=== PATIENT | female | born 1995 | race Caucasian/White ===

== ENCOUNTER 2019-08-02 17:11 | Emergency (ER) | payer BC, MEDICARE, MEDICAID, SELFPAY ==
[2019-08-02 17:27] VITALS: BP 130/83; PULSE 92; RESP 18; TEMP 37.3; O2SAT 98
--- NOTE | 2019-08-02 17:45 | ED.GENADULT ---
HPI - General Adult General Chief complaint: Dental/Oral Stated complaint: tooth pain Time Seen by Provider: 08/02/19 17:45 Source: patient and RN notes reviewed Mode of arrival: ambulatory Limitations: no limitations History of Present Illness HPI narrative: 24-year-old female who presents to express care with complaints of dental pain left upper and lower molar for the past 2-3 week. Patient states that she had an appointment with her dentist but they canceled it due to pandemic and she was told to come to express care for evaluation. Patient has noted dental caries to last molar upper #15, and lower #18 on the left side with some redness of surrounding gum, no drainage noted.No swelling of jaw or any evidence of Andre angina. MD complaint: dental pain Onset (ago): week(s) (2-3) Location: mouth Radiation: non-radiation Severity: severe Severity scale (1-10): 8 Quality: aching Pain Consistency: constant Relieving factors: none Exacerbating factors: eating Treatments prior to arrival: NSAID Related Data Home Medications Medication Instructions Recorded Confirmed albuterol sulfate INHALATION 08/02/19 benztropine 08/02/19 cariprazine [Vraylar] mg 08/02/19 dextroamphetamine-amphetamine PO 08/02/19 hydroxyzine HCl 08/02/19 levothyroxine 50 mcg PO DAILY 08/02/19 08/02/19 lithium carbonate 08/02/19 lorazepam 08/02/19 trazodone 08/02/19 Allergies Allergy/AdvReac Type Severity Reaction Status Date / Time gluten AdvReac Mild Diarrhea Verified 08/02/19 17:32 Review of Systems Review of Systems: Narrative: CONSTITUTIONAL: Denies fever, chills, or sweats. EYES: Denies visual changes, redness, or discharge. ENT: Denies rhinorrhea, congestion, sore throat, or otalgia, verbalizes dental pain left upper and left lower molars, states increase discomfort with cold oral fluids. CARDIOVASCULAR: Denies chest pain, palpitations, or edema. RESPIRATORY: Denies cough or dyspnea. GASTROINTESTINAL: Denies abdominal pain, nausea, vomiting, or diarrhea. GENITOURINARY: Denies dysuria or hematuria. SKIN: Denies rash or itching. MUSCULOSKELETAL: Denies back pain, joint pain, or myalgia. NEUROLOGIC: Denies headache, numbness, or weakness. PSYCHIATRIC: positive anxiety or depression. All systems reviewed & are unremarkable except as noted in HPI and below PMFSH Past Medical History Medical History (Updated 08/02/19 @ 18:19 by Kathy Fourneir NP) ADHD Anxiety and depression Asthma Bipolar 1 disorder Bronchitis Celiac disease Fracture of left foot History of dental problems History of PCOS Hypothyroidism Insulin resistance Migraines Pneumonia Vitamin B12 deficiency Surgical History Surgical History (Updated 08/02/19 @ 18:38 by Kathy Fournier NP) History of tonsillectomy Social History Social History (Updated 08/02/19 @ 18:16 by Kahty Fournier NP) Smoking packs per day: 0.5 Smoking cigarettes per day: 10.0 Years smoked: 7 Smoking pack-years: 3.50 Smoking status: Current every day smoker Gender identity (if verbalized by the patient): Female Comments At time of signature, agree with nursing past medical, surgical, social history. There is no relevant family history pertinent to the presenting complaint Exam Narrative: Exam Narrative: GENERAL: Well-appearing, well-nourished, and in no acute distress. HEAD: Normocephalic, atraumatic. EYES: PERRLA and EOMI. ENT: Nares clear, no rhinorrhea or epistaxis. Mucous membranes moist.TM's normal with good light reflex, throat pink with no lesions or exudates, no tonsil swelling. #15, and #18 tooth has caries and dental pain, mild redness of surrounding gums, no Andre angina or jaw swelling NECK: Supple.no lymphadenopathy CHEST: Clear to auscultation. No respiratory distress. SAO2 98% on room air HEART: Regular rate and rhythm. No murmur heard. Normal peripheral pulses. ABDOMEN: Soft, nontender, nondistended, normal active bowel sounds. EXTREMITIES: Nor
== END 2019-08-02 18:00 | disposition home or self-care (01) ==
PROVIDERS: Emergency Provider Registered Nurse; PCP Family Medicine
DX: K02.9 Dental caries, unspecified (principal); F17.210 Nicotine dependence, cigarettes, uncomplicated; J45.909 Unspecified asthma, uncomplicated; E28.2 Polycystic ovarian syndrome; E03.9 Hypothyroidism, unspecified; F41.9 Anxiety disorder, unspecified; F90.9 Attention-deficit hyperactivity disorder, unspecified type; F31.9 Bipolar disorder, unspecified
CPT/HCPCS: 99213; G0463

== ENCOUNTER 2019-08-13 12:04 | Emergency (ER) | payer BC, MEDICARE, MEDICAID, SELFPAY ==
[2019-08-13 12:06] VITALS: BP 153/109; PULSE 121; RESP 16; TEMP 37; O2SAT 99
--- NOTE | 2019-08-13 12:48 | ED.GENADULT ---
HPI - General Adult General Chief complaint: Dental/Oral Stated complaint: Tooth infection Time Seen by Provider: 08/13/19 12:12 Source: patient Mode of arrival: ambulatory Limitations: no limitations History of Present Illness HPI narrative: Patient is a 24-year-old female who presents with 3 weeks duration of upper and lower posterior molar dental pain patient is currently being treated with penicillin for her upper respiratory symptoms patient denies any URI symptoms or other complaints notes moderate aching pain worse with eating is otherwise resting comfortably in the room upon arrival in no distress Related Data Home Medications Medication Instructions Recorded Confirmed albuterol sulfate INHALATION 08/02/19 benztropine 08/02/19 cariprazine [Vraylar] mg 08/02/19 dextroamphetamine-amphetamine PO 08/02/19 hydroxyzine HCl 08/02/19 levothyroxine 50 mcg PO DAILY 08/02/19 08/02/19 lithium carbonate 08/02/19 lorazepam 08/02/19 trazodone 08/02/19 Allergies Allergy/AdvReac Type Severity Reaction Status Date / Time gluten AdvReac Mild Diarrhea Verified 08/13/19 12:20 Review of Systems Review of Systems: All systems reviewed & are unremarkable except as noted in HPI and below PMFSH Past Medical History Medical History ADHD Anxiety and depression Asthma Bipolar 1 disorder Bronchitis Celiac disease Fracture of left foot History of dental problems History of PCOS Hypothyroidism Insulin resistance Migraines Pneumonia Vitamin B12 deficiency Surgical History Surgical History History of tonsillectomy Social History Social History Smoking packs per day: 0.5 Smoking cigarettes per day: 10.0 Years smoked: 7 Smoking pack-years: 3.50 Smoking status: Current every day smoker Gender identity (if verbalized by the patient): Female Exam Narrative: Exam Narrative: GENERAL: Well-appearing, well-nourished, and in no acute distress. HEAD: Normocephalic, atraumatic. EYES: PERRLA and EOMI. ENT: Nares clear, no rhinorrhea or epistaxis. Mucous membranes moist. Oropharynx without tonsillar hypertrophy exudate or other lesions. Dental caries in the teeth noted no erythema. Uvula midline no trismus or drooling NECK: Supple. No adenopathy or masses. CHEST: Clear to auscultation. No respiratory distress. No wheezes rales or rhonchi HEART: Regular rate and rhythm. No murmur heard. EXTREMITIES: Normal range of motion. No edema. SKIN: Warm, dry, no rash. NEURO: No focal deficits. Alert and oriented x3. Cranial nerves II through XII grossly intact PSYCH: Normal mood and affect. Course Course Emergency Course: Patient in the room in no distress aware of case findings treatment plan and diagnosis Vital Signs Vital signs: Vital Signs Temperature 98.6 F 08/13/19 12:06 Pulse Rate 121 H 08/13/19 12:06 Respiratory Rate 16 08/13/19 12:06 Blood Pressure 153/109 H 08/13/19 12:06 Pulse Oximetry 99 08/13/19 12:06 Temperature 98.6 F 08/13/19 12:06 Pulse Rate 121 H 08/13/19 12:06 Respiratory Rate 16 08/13/19 12:06 Blood Pressure 153/109 H 08/13/19 12:06 Pulse Oximetry 99 08/13/19 12:06 Medical Decision Making MDM Narrative Medical decision making narrative: Paitents pain and complaint coupled with physical findings are consistant with dentalgia. There are no focal signs of space occupying lesions that are compromising to the ariway. The floor of the mouth is soft with no signs of Ludwigs Angina. Patient is without trismus or drooling and able to swallow secreations. Patient is felt appropriate for discharge home with dental follow up. Vital Signs Vital Signs: Vital Signs Temperature 98.6 F 08/13/19 12:06 Pulse Rate 121 H 08/13/19 12:06 Respiratory Rate 16 08/13/19 12:06 Blood Pressure 153/
== END 2019-08-13 12:58 | disposition home or self-care (01) ==
PROVIDERS: Emergency Provider Emergency Medicine; PCP Family Medicine
DX: K08.89 Other specified disorders of teeth and supporting structures (principal); F17.210 Nicotine dependence, cigarettes, uncomplicated; F90.9 Attention-deficit hyperactivity disorder, unspecified type; F41.9 Anxiety disorder, unspecified; E28.2 Polycystic ovarian syndrome; E03.9 Hypothyroidism, unspecified; F31.9 Bipolar disorder, unspecified
CPT/HCPCS: 99283

== ENCOUNTER 2020-11-12 23:29 | Emergency (ER) | payer BC, MEDICARE, MEDICAID, SELFPAY ==
--- NOTE | ~2020-11-12 | XR_ITS ---
EXAMINATION: XR chest 2V DATE: 11/13/2020 00:24 INDICATION: Dizziness. Left-sided chest pain and wheezing. TECHNIQUE: PA and lateral views of the chest were obtained. COMPARISON: None FINDINGS: The lungs are clear with no focal airspace opacities, pulmonary edema, pleural effusion or pneumothor ax. The cardiomediastinal silhouette is normal. Visualized bones and soft tissues are unremarkable. IMPRESSION: 1. No acute cardiopulmonary disease. Reviewed, dictated and finalized at location A.
--- NOTE | ~2020-11-12 | CT_ITS ---
EXAMINATION: CT abdomen pelvis w con DATE: 11/13/2020 02:13 INDICATION: Left lower abdominal pain TECHNIQUE: Computed tomography (CT) of the abdomen and pelvis was performed with 100 mL Omnipaque-350 intravenous contrast. Automated exposure control and iterative reconstruction technique were employe d. The dose-length product was 1421.16 mGy-cm. COMPARISON: None FINDINGS: Mild discoid atelectasis at the lingula. Heart size is normal. No pericardial or pleural effusion. Sm all sliding-type hiatal hernia. Focal hepatic steatosis at the ligamentum teres. Gallbladder, spleen, pancreas, bilateral adrenal glands and kidneys are normal. 7.1 cm left ovarian cyst positioned anter ior to the uterus. Right adnexa is unremarkable. Bladder is normal. No free intraperitoneal gas or fl uid. No pathologically enlarged abdominal or pelvic lymphadenopathy. Bones are unremarkable. IMPRESSION: 1. 7.1 cm left ovarian cyst. Reviewed, dictated and finalized at location A.
[2020-11-12 23:34] VITALS: BP 143/93; PULSE 106; TEMP 36.6; O2SAT 100
[2020-11-12 23:56] VITALS: BP 143/93; PULSE 106; RESP 14; TEMP 36.6; O2SAT 99
--- NOTE | 2020-11-13 00:08 | ECG_ITS ---
Measurements Intervals Mason Rate: 87 P: 27 MN: 213 QRS: 8 QRSD: 100 T: 34 QT: 347 QTc: 418 Interpretive Statements SINUS RHYTHM WITH FIRST DEGREE AV BLOCK BASELINE ARTIFACT- III, AVF ABNORMAL ECG Electronically Signed On 11-13-2020 6:16:35 CDT by Armando Tobias D.O.
--- NOTE | 2020-11-13 00:13 | ED.DIZZY ---
HPI - Dizziness General Chief Complaint: Dizziness Stated Complaint: lightheaded,dizzy-facial pain Time Seen by Provider: 11/12/20 23:53 Source: patient and RN notes reviewed Mode of arrival: ambulatory Limitations: no limitations History of Present Illness HPI Narrative: This is a 25 year old female with history of Bipolar, hypothyroid and anxiety who presents for evaluation of dizziness. She states she has been lightheaded all day today. It is worse with standing but she also reports she has it when sitting as well. She has had a decreased appetite all day, and she developed nausea and vomiting tonight when she attempted to eat. She also states she developed left jaw pain tonight. She denies fever or chills. She has been dealing with URI symptoms with sinus drainage for 1 week, and she was diagnosed with pleurisy last week. She states she had a cough so she went to a clinic. She was tested for covid and strep, and her results were negative. last menstrual period was in September. She also reports left lower abdominal pain for 2 weeks. Related Data Home Medications Medication Instructions Recorded Confirmed albuterol sulfate INHALATION 08/02/19 benztropine 08/02/19 cariprazine [Vraylar] mg 08/02/19 dextroamphetamine-amphetamine PO 08/02/19 hydroxyzine HCl 08/02/19 levothyroxine 50 mcg PO DAILY 08/02/19 08/02/19 lithium carbonate 08/02/19 lorazepam 08/02/19 trazodone 08/02/19 Allergies Allergy/AdvReac Type Severity Reaction Status Date / Time gluten AdvReac Mild Diarrhea Verified 11/12/20 23:30 Review of Systems Review of Systems: All systems reviewed & are unremarkable except as noted in HPI and below ENT: Reports nasal congestion, Reports nasal discharge, Reports post nasal drip and Denies sore throat Cardiovascular: Cardiovascular: Denies chest pain Respiratory: Respiratory: Reports cough Gastrointestinal: Gastrointestinal: Reports abdominal pain (2 weeks), Denies nausea and Denies vomiting Neurologic: Denies numbness PMFSH Past Medical History Medical History (Updated 11/13/20 @ 02:52 by Janett Maria MD) ADHD Anxiety and depression Asthma Bipolar 1 disorder Bronchitis Celiac disease Fracture of left foot History of dental problems History of PCOS Hypothyroidism Insulin resistance Migraines Pneumonia Vitamin B12 deficiency Surgical History Surgical History History of tonsillectomy Social History Social History Smoking packs per day: 0.5 Smoking cigarettes per day: 10.0 Years smoked: 7 Smoking pack-years: 3.50 Smoking status: Current every day smoker Gender identity (if verbalized by the patient): Female Exam Const: General: no acute distress and alert Orientation/consciousness: patient oriented x3 HENMT: Ears: TM's normal bilaterally Eyes: EOM: EOMs intact bilaterally Chest: Chest palpation & inspection: normal inspection of the chest Resp: Effort & Inspection: normal respiratory effort and no retractions Auscultation: clear to auscultation bilaterally Cardio: Rate: regular rate Rhythm: regular rhythm Heart sounds: no murmurs GI: GI Palp: Yes Soft to palpation, No Tenderness to palpation present (GI) and No Guarding due to palpation present (GI) Auscultation: normal bowel sounds Skin: General skin exam: normal color Rashes: no rashes Neuro: General: patient oriented x3, moves all extremities and CN's II-XI intact bilaterally Psych: Mental Status: mental status grossly normal Affect: normal affect Course Reevaluation(s) Reevaluation #1: PAtient states she feels much better. She reports minimal abdominal pain. I reviewed CT with patient about ovarian cyst. She reported this pain has been present for 2 weeks. She has history of ovarian cyst, and she understands she will need to followup with your cigarette stamper britney
[2020-11-13 00:41] LABS: Basophils Absolute Auto 0.1 K/mm3 (0.0-0.1); Basophils Percent Auto 0.4 % (0.2-1.2); Eosinophils Absolute Auto 0.2 K/mm3 (0-0.3); Eosinophils Percent Auto 1.4 % (0-4.4); Hematocrit 45.2 % (37.0-47.0); Hemoglobin 14.6 g/dL (12.0-15.0); Immature Granulocyte Absolute 0.05 K/mm3 (0.00-0.031); Immature Granulocyte Percent A 0.4 % (0-0.5); Lymphocytes Absolute Auto 3.29 K/mm3 (0.9-3.2); Lymphocytes Percent Auto 23.8 % (18.3-44.2); Mean Corpuscular HGB Conc 32.3 g/dl (32-36); Mean Corpuscular Hemoglobin 30.6 pg (26-34); Mean Corpuscular Volume 94.8 fl (80-100); Mean Platelet Volume 8.9 fl (7.4-10.4); Neutrophils Absolute Auto 9.3 K/mm3 (1.3-6.7); Platelet Count Result 377 k/mm3 (150-375); Red Blood Count 4.77 M/mm3 (4.2-5.4); Red Cell Distribution Width 13.2 % (11.5-14.5); White Blood Count 13.8 K/mm3 (4.5-10.0)
[2020-11-13] MEDS: KETOROLAC 30 MG/ML VIAL (*BKC) IV PUSH (00:43)
[2020-11-13] MEDS: SODIUM CHLORIDE 0.9% IV 1,000 ML 999 ML IV CONT (00:43)
[2020-11-13] MEDS: ONDANSETRON INJ 4 MG/2 ML VIAL IV PUSH (00:43)
[2020-11-13 00:44] VITALS: BP 128/78; PULSE 88; RESP 17; O2SAT 96
[2020-11-13 00:45] VITALS: BP 120/76; PULSE 84
[2020-11-13 00:46] VITALS: BP 129/76; PULSE 92
[2020-11-13 00:46] LABS: Add Urine Microscopic? YES; Appearance Urine Cloudy (Clear); Bacteria Urine Trace /hpf; Bilirubin Urine Negative (Negative); Blood Urine Negative (Negative); Color Urine Yellow (Yellow); Glucose Urine UA Negative (Negative); Ketones Urine Negative (Negative); Leukocyte Esterase Ur Negative LEU/UL (Negative); Mucus Urine Rare /lpf; Nitrate Urine Negative (Negative); Protein Urine Negative (Negative); RBC Urine 0-2 /hpf (0-2); Specific Grav Ur 1.016 (1.001-1.035); Squamous Epithelial Cell Urine Many /hpf (Few); Urobilinogen Urine Negative mg/dL (<2.0); WBC Urine 0-3 /hpf
[2020-11-13 00:47] VITALS: BP 125/77; PULSE 88
[2020-11-13 00:53] LABS: D Dimer 0.32 ug/mL (<0.48)
[2020-11-13 01:05] LABS: Amphetamine Screen Urine Positive (Negative); Barbiturate Screen Urine Negative (Negative); Benzodiazepines Screen Urine Negative (Negative); Cannabinoid Screen Urine Positive (Negative); Cocaine Screen Urine Negative (Negative); Methadone Screen Urine Negative (Negative); Opiate Screen Urine Negative (Negative); Phencyclidine Screen Urine Negative (Negative)
[2020-11-13 01:09] LABS: Alanine Aminotransferase 20 U/L (4-35); Albumin Level 4.1 g/dL (3.5-5.1); Alkaline Phosphatase 86 U/L (38-126); Anion Gap 8 mmol/L (8-16); Aspartate Amino Transferase 17 U/L (14-36); Bilirubin,Total 0.2 mg/dL (0.2-1.3); Blood Urea Nitrogen 8 mg/dL (7-17); Calcium 9.8 mg/dL (8.4-10.2); Carbon Dioxide 23 mmol/L (22-30); Chloride 109 mmol/L (98-107); Estimated CRCL calculation 83 ml/min; Estimated Glomerular Filt Rate > 60; Glucose 88 mg/dL (65-105); Magnesium 2.2 mg/dL (1.6-2.3); Sodium 140 mmol/L (137-145)
[2020-11-13 01:20] LABS: Troponin I < 0.012 ng/mL (0.000-0.034)
[2020-11-13 01:30] VITALS: BP 131/75; PULSE 86; RESP 22; O2SAT 95
[2020-11-13 01:37] LABS: Lithium 0.4 mmol/L (0.6-1.2)
[2020-11-13 02:30] VITALS: BP 125/87; PULSE 71; RESP 22; O2SAT 97
== END 2020-11-13 03:00 | disposition home or self-care (01) ==
PROVIDERS: Emergency Provider General Practice; PCP Family Medicine
DX: R42 Dizziness and giddiness (principal); E28.2 Polycystic ovarian syndrome; E03.9 Hypothyroidism, unspecified; F31.9 Bipolar disorder, unspecified; F41.9 Anxiety disorder, unspecified; F90.9 Attention-deficit hyperactivity disorder, unspecified type; J45.909 Unspecified asthma, uncomplicated; K90.0 Celiac disease; E88.81 Metabolic syndrome and other insulin resistance; E53.8 Deficiency of other specified B group vitamins; Z87.01 Personal history of pneumonia (recurrent); F17.210 Nicotine dependence, cigarettes, uncomplicated
CPT/HCPCS: 36415; 71046; 74177; 80053; 80178; 80307; 81001; 81025; 83735; 84484; 85025; 85380; 93005; 96361; 96374; 96375; 99284; J1885; J2405; J7030; Q9967

== ENCOUNTER 2020-12-04 21:49 | Emergency (ER) | payer BC, MEDICARE, MEDICAID, SELFPAY ==
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
[2020-12-04 23:22] VITALS: BP 135/95; PULSE 99; RESP 18; TEMP 36.6; O2SAT 98
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
== END 2020-12-05 01:24 | disposition home or self-care (01) ==
PROVIDERS: Emergency Provider General Practice; PCP Family Medicine
DX: S60.211A Contusion of right wrist, initial encounter (principal); F90.9 Attention-deficit hyperactivity disorder, unspecified type; F41.9 Anxiety disorder, unspecified; J45.909 Unspecified asthma, uncomplicated; F31.9 Bipolar disorder, unspecified; K90.0 Celiac disease; E03.9 Hypothyroidism, unspecified; E28.2 Polycystic ovarian syndrome; E53.8 Deficiency of other specified B group vitamins; Z87.01 Personal history of pneumonia (recurrent); E88.81 Metabolic syndrome and other insulin resistance; F17.210 Nicotine dependence, cigarettes, uncomplicated; W50.3XXA Accidental bite by another person, initial encounter
CPT/HCPCS: 73110; 99283

== ENCOUNTER 2020-12-20 18:19 | Emergency (ER) | payer BC, MEDICARE, MEDICAID, SELFPAY ==
--- NOTE | ~2020-12-20 | XR_ITS ---
EXAMINATION: XR foot LT min 3V DATE: 12/20/2020 19:36 INDICATION: Left foot injury. TECHNIQUE: 4 views of left foot were obtained. COMPARISON: None. FINDINGS: There is mild hallux valgus. No fracture. Joint spaces are normal. IMPRESSION: 1. Mild hallux valgus. Reviewed, dictated and finalized at location A. IMPRESSION: 1. Mild hallux valgus.
[2020-12-20 18:30] VITALS: BP 132/72; PULSE 97; RESP 16; TEMP 36.6; O2SAT 99
--- NOTE | 2020-12-20 18:41 | ED.GENADULT ---
HPI - General Adult General Chief complaint: Extremity Injury, Lower Stated complaint: left foot Time Seen by Provider: 12/20/20 18:41 Source: patient and RN notes reviewed Mode of arrival: ambulatory Limitations: no limitations History of Present Illness HPI narrative: 25-year-old female presents with complaints of left foot pain for the past 7 days. ?Yeni reports losing balance and stepping incorrectly causing injury to LT foot, pain is constant. ?Ice, elevation, rest, and Tylenol last today at noon, without relief. ?History of fracture to LT foot in same spot per patient. ?Hurts to bear weight. ?No radiation of pain. ?No numbness, tingling, or loss of mobility. ?Exacerbating factor applying weight. ?Denies inability to bear weight. ?Denies discoloration. Denies suspect foreign body. ?Denies fever or chills. ?LMP 2 weeks ago. ?Remains active. ?The patient reports she has not been diagnosed with COVID-19. ?The patient reports she received 1 Moderna COVID-19 vaccine. ?The patient reports she is not waiting for the results of a COVID-19 lab test. ?The patient reports she does not have weakness, fatigue, or myalgia. ?The patient reports she does not have a new or worsening cough or shortness of breath. ?The patient reports she does not have any rhinorrhea, congestion, loss of taste or smell, sore throat, nausea, vomiting, abdominal pain, and diarrhea. ?Denies recent traveling. Denies concerns for COVID-19 or exposures. ?At this time, the patient is not suspected of having COVID-19. Some parts of this dictation were generated by voice recognition software and may contain typographical and/or grammatical inaccuracies. Related Data Home Medications Medication Instructions Recorded Confirmed cariprazine [Vraylar] 4.5 mg PO DAILY 08/02/19 12/20/20 hydroxyzine HCl 08/02/19 levothyroxine 50 mcg PO DAILY 08/02/19 12/20/20 trazodone 100 mg PO HS 08/02/19 dextroamphetamine-amphetamine 20 mg PO DAILY 12/20/20 12/20/20 gabapentin 300 mg PO BID 12/20/20 12/20/20 lithium carbonate 450 mg PO BID 12/20/20 12/20/20 norgestimate-ethinyl estradiol 1 tablet PO DAILY 12/20/20 12/20/20 [Maribel] prazosin 1 mg PO HS 12/20/20 12/20/20 topiramate 25 mg PO DAILY 12/20/20 12/20/20 Allergies Allergy/AdvReac Type Severity Reaction Status Date / Time gluten AdvReac Mild Diarrhea Verified 12/20/20 18:43 Review of Systems Review of Systems: CONSTITUTIONAL: Denies fever, chills, sweats. EYES: Denies visual changes, redness, discharge. ENT: Denies rhinorrhea, congestion, sore throat, otalgia. CARDIOVASCULAR: Denies chest pain, palpitations, edema. RESPIRATORY: Denies dyspnea, wheezing, cough. GASTROINTESTINAL: Denies abdominal pain, nausea, vomiting, diarrhea. SKIN: Denies rash or itching. MUSCULOSKELETAL: Denies acute back pain or myalgia. Complaints of pain to the left foot. NEUROLOGIC: Denies numbness or focal weakness. PSYCHIATRIC: Denies anxiety or depression. All other systems reviewed are negative, except as documented in HPI and below. [facility] Past Medical History Medical History (Updated 12/20/20 @ 19:08 by KANIKA Maxwell) ADHD Anxiety and depression Asthma Bipolar 1 disorder Bronchitis Celiac disease Fracture of left foot History of dental problems History of PCOS Hypothyroidism Insulin resistance Migraines Pneumonia Vitamin B12 deficiency Surgical History Surgical History (Updated 12/20/20 @ 19:08 by KANIKA Maxwell) History of dental surgery History of tonsillectomy Family History Family History (Updated 12/20/20 @ 19:09 by KANIKA Maxwell) Father Unknown family medical history Mother Unknown family medical history Grandparent Asthma Cervical cancer Social History Social History (Updated 12/20/20 @ 19:10 by KANIKA Maxwell) Smoking packs per day: 1 Smoking cigarettes per day: 20.0 Years smoked: 8 Smoking pack-years: 8.00 Smoking status: Current every d
--- NOTE | 2020-12-20 19:50 | PC.NURSE ---
x-ray normal, patient notified and discharged with prior instructions.
== END 2020-12-20 19:50 | disposition home or self-care (01) ==
PROVIDERS: Emergency Provider Nurse Practitioner Family; PCP Family Medicine
DX: M79.672 Pain in left foot (principal); F17.210 Nicotine dependence, cigarettes, uncomplicated; J45.909 Unspecified asthma, uncomplicated; E28.2 Polycystic ovarian syndrome; E03.9 Hypothyroidism, unspecified; E55.9 Vitamin D deficiency, unspecified; F90.9 Attention-deficit hyperactivity disorder, unspecified type; F31.9 Bipolar disorder, unspecified; F41.9 Anxiety disorder, unspecified
CPT/HCPCS: 73630; 99213; G0463

== ENCOUNTER 2021-01-19 18:47 | Emergency (ER) | payer BC, MEDICARE, MEDICAID, SELFPAY ==
[2021-01-19 18:53] VITALS: BP 105/76; PULSE 90; RESP 20; TEMP 36.6; O2SAT 99
--- NOTE | 2021-01-19 19:57 | ED.SKABFB ---
HPI - Skin/Abscess/Foreign Bdy General Chief complaint: Skin/Abscess/Foreign Body Stated complaint: tatoo infection Time Seen by Provider: 01/19/21 19:45 Source: patient, RN notes reviewed and old records reviewed Mode of arrival: ambulatory Limitations: no limitations History of Present Illness HPI narrative: 25 year old female who presents to [facility] care with complaints of infection to her left inner forearm from recent tattoo.She has surrounding redness to skin with some pustular lesions noted along tattoo edges. Patient states that she has applied A&D to tattoo and has been taking Ibuprofen for her discomfort. Patient denies any know fevers, chills or sweats, has some warmth noted to left forearm area of redness. Patient states that she has no other symptoms of illness, rates pain to right forearm as 4/10 and states stinging sensation. MD complaint: rash Related Data Home Medications Medication Instructions Recorded Confirmed levothyroxine 50 mcg PO DAILY 08/02/19 01/19/21 trazodone 100 mg PO HS 08/02/19 01/19/21 dextroamphetamine-amphetamine 20 mg PO DAILY 12/20/20 01/19/21 gabapentin 300 mg PO BID 12/20/20 01/19/21 lithium carbonate 450 mg PO TID 12/20/20 01/19/21 norgestimate-ethinyl estradiol 1 tablet PO DAILY 12/20/20 01/19/21 [Maribel] prazosin 1 mg PO HS 12/20/20 01/19/21 topiramate 25 mg PO BID 12/20/20 01/19/21 albuterol sulfate 2.5 mg CONTINUOUS NEBULIZATION 01/19/21 01/19/21 Q4-6H PRN lorazepam 0.5 mg PO DAILY 01/19/21 01/19/21 Allergies Allergy/AdvReac Type Severity Reaction Status Date / Time gluten AdvReac Mild Diarrhea Verified 01/19/21 19:09 Review of Systems Review of Systems: CONSTITUTIONAL: Denies fever, chills, or sweats. EYES: Denies visual changes, redness, or discharge. ENT: Denies rhinorrhea, congestion, sore throat, or otalgia. CARDIOVASCULAR: Denies chest pain, palpitations, or edema. RESPIRATORY: Denies cough or dyspnea. GASTROINTESTINAL: Denies abdominal pain, nausea, vomiting, or diarrhea. GENITOURINARY: Denies dysuria or hematuria. SKIN: Positive for redness with warm and some pustular lesions on right inner forearm where recent tattoo MUSCULOSKELETAL: Denies back pain, joint pain, or myalgia. NEUROLOGIC: Denies headache, numbness, or weakness. PSYCHIATRIC: Positive history of anxiety or depression, and bipolar disease All systems reviewed & are unremarkable except as noted in HPI and below PMFSH Past Medical History Medical History ADHD Anxiety and depression Asthma Bipolar 1 disorder Bronchitis Celiac disease Fracture of left foot History of dental problems History of PCOS Hypothyroidism Insulin resistance Migraines Pneumonia Vitamin B12 deficiency Surgical History Surgical History History of dental surgery History of tonsillectomy Family History Family History (Updated 01/25/21 @ 11:23 by Kathy Fournier NP) Father Unknown family medical history Mother Unknown family medical history Grandparent Asthma Cervical cancer FH: mental illness Diabetes mellitus Social History Social History Smoking packs per day: 1 Smoking cigarettes per day: 20.0 Years smoked: 8 Smoking pack-years: 8.00 Smoking status: Current every day smoker Tobacco type: cigarettes Second hand tobacco smoke exposure: No Alcohol intake: current Substance use: current Substance use type: marijuana Additional occupation/education comments: disable Gender identity (if verbalized by the patient): Female Sexual Orientation (if Verbalized by the Patient): Straight or Heterosexual Comments At time of signature, agree with nursing past medical, surgical, social and family history. There is no relevant family history pertinent to the presenting complaint Exam Narrative: GENERAL: Well-
== END 2021-01-19 20:10 | disposition home or self-care (01) ==
PROVIDERS: Emergency Provider Registered Nurse; PCP Family Medicine
DX: L02.413 Cutaneous abscess of right upper limb (principal); F17.210 Nicotine dependence, cigarettes, uncomplicated; E28.2 Polycystic ovarian syndrome; E03.9 Hypothyroidism, unspecified; E88.81 Metabolic syndrome and other insulin resistance; F90.9 Attention-deficit hyperactivity disorder, unspecified type; F41.9 Anxiety disorder, unspecified; F31.9 Bipolar disorder, unspecified
CPT/HCPCS: 99213; G0463

== ENCOUNTER 2021-10-24 14:24 | Emergency (ER) | payer MEDICARE, MEDICAID, SELFPAY ==
[2021-10-24] VITALS (15 sets, daily range): BP systolic 111–139; BP diastolic 76–91; PULSE 74–110; RESP 13–27; TEMP 36.3; O2SAT 93–100
--- NOTE | ~2021-10-24 | CT_ITS ---
EXAMINATION: CT abdomen pelvis wo con DATE: 10/24/2021 16:47 INDICATION: LLQ abd pain TECHNIQUE: Computed tomography (CT) of the abdomen and pelvis was performed without intravenous contr ast. Automated exposure control and iterative reconstruction technique were employed. The dose-length product was 1030.32 mGy-cm. COMPARISON: 11/13/2020. FINDINGS: Lower thorax: Unremarkable Liver: Normal. Biliary/Gallbladder: Gallbladder is normal. No bile duct dilation. Pancreas: No mass or duct dilation. Spleen: Normal. Adrenals:No mass. Kidneys: No mass, stone, or hydronephrosis. GI tract: No small or large bowel dilation. Normal appendix. Mesentery/Peritoneum: No ascites, mass, or free air. Retroperitoneum: No mass. Pelvis: Pelvic organs are within normal limits. Soft Tissues: Soft tissues and body wall unremarkable. Bones: No acute osseous finding. IMPRESSION: No acute abdominopelvic process detected. Reviewed, dictated and finalized at location K.
[2021-10-24 14:38] LABS: Basophils Absolute Auto 0.1 K/mm3 (0.0-0.1); Basophils Percent Auto 0.5 % (0.2-1.2); Eosinophils Absolute Auto 0.1 K/mm3 (0-0.3); Eosinophils Percent Auto 0.7 % (0-4.4); Hematocrit 48.1 % (37.0-47.0); Hemoglobin 15.6 g/dL (12.0-15.0); Immature Granulocyte Absolute 0.04 K/mm3 (0.00-0.031); Immature Granulocyte Percent A 0.3 % (0-0.5); Lymphocytes Absolute Auto 3.08 K/mm3 (0.9-3.2); Lymphocytes Percent Auto 23.3 % (18.3-44.2); Mean Corpuscular HGB Conc 32.4 g/dl (32-36); Mean Corpuscular Hemoglobin 31.3 pg (26-34); Mean Corpuscular Volume 96.4 fl (80-100); Mean Platelet Volume 8.4 fl (7.4-10.4); Monocytes Absolute Auto 0.6 K/mm3 (0.1-0.6); Monocytes Percent Auto 4.2 % (2.6-8.5); Neutrophils Absolute Auto 9.4 K/mm3 (1.3-6.7); Platelet Count Result 557 k/mm3 (150-375); Red Blood Count 4.99 M/mm3 (4.2-5.4); White Blood Count 13.2 K/mm3 (4.5-10.0)
[2021-10-24 14:48] LABS: Alanine Aminotransferase 17 U/L (6-35); Albumin Level 4.5 g/dL (3.5-5.1); Alkaline Phosphatase 96 U/L (38-126); Anion Gap 6 mmol/L (8-16); Aspartate Amino Transferase 21 U/L (14-36); Bilirubin,Total 0.3 mg/dL (0.2-1.3); Blood Urea Nitrogen 9 mg/dL (7-17); Calcium 9.6 mg/dL (8.4-10.2); Carbon Dioxide 26 mmol/L (22-30); Chloride 107 mmol/L (98-107); Estimated CRCL calculation 93 ml/min; Estimated Glomerular Filt Rate > 60; Glucose 110 mg/dL (65-110); Lipase 27 U/L (23-300); Potassium 3.8 mmol/L (3.4-5.0); Sodium 139 mmol/L (137-145)
[2021-10-24 15:06] LABS: Appearance Urine Cloudy (Clear); Bilirubin Urine 1+ (Negative); Blood Urine Negative (Negative); Color Urine Yellow (Yellow); Glucose Urine UA Negative (Negative); Ketones Urine Negative (Negative); Leukocyte Esterase Ur Negative LEU/UL (Negative); Nitrate Urine Negative (Negative); Protein Urine 1+ mg/dL (Negative); Specific Grav Ur >= 1.030 (1.001-1.035); Urobilinogen Urine 0.2 mg/dL (<2.0); pH Urine 5.5 (5.0-9.0)
[2021-10-24 15:10] LABS: Bacteria Urine 4+ /hpf; Mucus Urine Heavy /lpf; Squamous Epithelial Cell Urine Many /hpf (Few)
[2021-10-24 15:12] LABS: Add Urine Microscopic? YES
--- NOTE | 2021-10-24 15:33 | ED.GENADULT ---
HPI - General Adult General Chief complaint: Nausea/Vomiting/Diarrhea Stated complaint: LAP N/V X2D Time Seen by Provider: 10/24/21 15:25 Source: RN notes reviewed History of Present Illness HPI narrative: Patient presents emergency room from home for abdominal pain. Patient states abdominal pain began yesterday pain is located left lower quadrant does not radiate. Pain is described as sharp and stabbing. Associated with nausea and vomiting. States she took Tylenol last night with minimal relief. Denies fevers or chills chest pain, shortness of breath diarrhea or any other symptoms. States she does have a history of ovarian cyst Related Data Home Medications Medication Instructions Recorded Confirmed levothyroxine 50 mcg capsule 50 mcg PO DAILY 08/02/19 01/19/21 trazodone 50 mg tablet 100 mg PO HS 08/02/19 01/19/21 dextroamphetamine-amphetamine ER 20 mg PO DAILY 12/20/20 01/19/21 20 mg 24hr capsule,extend release gabapentin 300 mg capsule 300 mg PO BID 12/20/20 01/19/21 lithium carbonate 450 mg 450 mg PO TID 12/20/20 01/19/21 tablet,extended release norgestimate 0.25 mg-ethinyl 1 tablet PO DAILY 12/20/20 01/19/21 estradiol 35 mcg tablet (Maribel) prazosin 1 mg capsule 1 mg PO HS 12/20/20 01/19/21 topiramate 25 mg tablet 25 mg PO BID 12/20/20 01/19/21 albuterol sulfate 2.5 mg/3 mL 2.5 mg continuous nebulization 01/19/21 01/19/21 (0.083 %) solution for nebulization Q4-6H PRN Shortness Of Breath Or Wheezing lorazepam 0.5 mg tablet 0.5 mg PO DAILY 01/19/21 01/19/21 Allergies Allergy/AdvReac Type Severity Reaction Status Date / Time gluten AdvReac Mild Diarrhea Verified 10/24/21 14:32 Review of Systems Review of Systems: Gen.: Denies fevers or chills ENT: Denies congestion Respiratory: Denies shortness of breath or cough CV: Denies chest pain or palpitations GI: See HPI denies burning, urgency, frequency or hematuria Musculoskeletal: Denies back pain or muscle pain Neuro: Denies numbness, tingling, weakness or focal weakness Skin: Denies rash Except as documented, all other systems reviewed and negative [facility] Past Medical History Medical History ADHD Anxiety and depression Asthma Bipolar 1 disorder Bronchitis Celiac disease Fracture of left foot History of dental problems History of PCOS Hypothyroidism Insulin resistance Migraines Pneumonia Vitamin B12 deficiency Surgical History Surgical History History of dental surgery History of tonsillectomy Family History Family History (Updated 01/25/21 @ 11:23 by Kathy Fournier NP) Father Unknown family medical history Mother Unknown family medical history Grandparent Asthma Cervical cancer FH: mental illness Diabetes mellitus Social History Social History Smoking packs per day: 1 Smoking cigarettes per day: 20.0 Years smoked: 8 Smoking pack-years: 8.00 Smoking status: Current every day smoker Tobacco type: cigarettes Second hand tobacco smoke exposure: No Alcohol intake: current Substance use: current Substance use type: marijuana Additional occupation/education comments: disable Gender identity (if verbalized by the patient): Female Sexual Orientation (if Verbalized by the Patient): Straight or Heterosexual Exam Narrative: APPEARANCE: No acute distress, nontoxic, resting in bed HEENT: Normocephalic, atraumatic, OMM RESPIRATORY: No respiratory distress, clear to auscultation bilaterally with no rhonchi wheezing or rales CARDIOVASCULAR: RRR s murmur ABDOMINAL: Soft nondistended tender palpation left lower quadrant no tenderness left upper quadrant, right upper quadrant right lower quadrant no rebound or guarding MUSCULOSKELETAl: Moves all extremities. No clubbing, cyanosis or edema. NEURO: Awake and alert. Following comman
[2021-10-24] MEDS: SODIUM CHLORIDE 0.9% IV 1,000 ML 999 ML IV CONT (15:45)
[2021-10-24] MEDS: KETOROLAC 30 MG/ML VIAL (*BKC) IV PUSH (15:46)
[2021-10-24] MEDS: ONDANSETRON INJ 4 MG/2 ML VIAL IV PUSH (15:46)
== END 2021-10-24 17:49 | disposition home or self-care (01) ==
PROVIDERS: Emergency Provider Emergency Medicine; PCP Family Medicine
DX: R10.32 Left lower quadrant pain (principal); R11.2 Nausea with vomiting, unspecified; K90.0 Celiac disease; E03.9 Hypothyroidism, unspecified; E88.81 Metabolic syndrome and other insulin resistance; E28.2 Polycystic ovarian syndrome; E53.8 Deficiency of other specified B group vitamins; F90.9 Attention-deficit hyperactivity disorder, unspecified type; F41.9 Anxiety disorder, unspecified; F31.9 Bipolar disorder, unspecified; F17.210 Nicotine dependence, cigarettes, uncomplicated
CPT/HCPCS: 36415; 74176; 80053; 81001; 81025; 83690; 85025; 87086; 87088; 96361; 96374; 96375; 99284; J1885; J2405; J7030

== ENCOUNTER 2022-04-30 16:06 | Emergency (ER) | payer BC, MEDICARE, MEDICAID, SELFPAY ==
--- NOTE | ~2022-04-30 | XR_ITS ---
EXAMINATION: XR hand RT min 3V, XR wrist RT min 3V DATE: 04/30/2022 16:59 INDICATION: Trauma to the medial side of the right hand and wrist after hitting a wall. TECHNIQUE: 1. Posteroanterior, ulnar deviation, oblique, and lateral views of the right wrist were obtained. 2. Dorsal palmar, oblique and lateral views of the right hand were obtained. COMPARISON: None. FINDINGS: Alignment of the right hand and wrist is normal. No fracture identified. Joint spaces are normal. No focal soft tissue swelling. IMPRESSION: 1. Negative right hand and wrist radiographs. Reviewed, dictated and finalized at location A. [employer]TAIN IMPRESSION: 1. Negative right hand and wrist radiographs.
[2022-04-30 16:12] VITALS: BP 151/98; PULSE 115; RESP 20; TEMP 36.7; O2SAT 94
--- NOTE | 2022-04-30 16:43 | ED.GENADULT ---
HPI - General Adult General Chief complaint: Extremity Injury, Upper Stated complaint: right hand injury Source: patient Mode of arrival: ambulatory Limitations: no limitations History of Present Illness HPI narrative: Patient presents for evaluation of pain in the right hand and rest for the last few days. She indicates she and her friend got into a disagreement. She punched a door with the lateral aspect of her right hand. She then punched a wall with the same portion of her hand. Since that time she reports 8/10 pain in the affected area. Pain radiates up her forearm and down into her fingers. She reports numbness and tingling in the digits of her right hand. She reports decreased range of motion states the pain is worse with movement. She is left-hand dominant. She is only taking Tylenol for symptoms. No additional complaints or concerns. Related Data Home Medications Medication Instructions Recorded Confirmed levothyroxine 50 mcg capsule 50 mcg PO DAILY 08/02/19 01/19/21 trazodone 50 mg tablet 100 mg PO HS 08/02/19 01/19/21 dextroamphetamine-amphetamine ER 20 mg PO DAILY 12/20/20 01/19/21 20 mg 24hr capsule,extend release gabapentin 300 mg capsule 300 mg PO BID 12/20/20 01/19/21 lithium carbonate 450 mg 450 mg PO TID 12/20/20 01/19/21 tablet,extended release norgestimate 0.25 mg-ethinyl 1 tablet PO DAILY 12/20/20 01/19/21 estradiol 35 mcg tablet (Maribel) prazosin 1 mg capsule 1 mg PO HS 12/20/20 01/19/21 topiramate 25 mg tablet 25 mg PO BID 12/20/20 01/19/21 albuterol sulfate 2.5 mg/3 mL 2.5 mg continuous nebulization 01/19/21 01/19/21 (0.083 %) solution for nebulization Q4-6H PRN Shortness Of Breath Or Wheezing lorazepam 0.5 mg tablet 0.5 mg PO DAILY 01/19/21 01/19/21 Allergies Allergy/AdvReac Type Severity Reaction Status Date / Time gluten AdvReac Mild Diarrhea Verified 10/24/21 14:32 Review of Systems Review of Systems: CONSTITUTIONAL: Denies fever, chills, or sweats. EYES: Denies visual changes, redness, or discharge. ENT: Denies rhinorrhea, congestion, sore throat, or otalgia. CARDIOVASCULAR: Denies chest pain, palpitations, or edema. RESPIRATORY: Denies cough or dyspnea. GASTROINTESTINAL: Denies abdominal pain, nausea, vomiting, or diarrhea. GENITOURINARY: Denies dysuria or hematuria. SKIN: Denies rash or itching. MUSCULOSKELETAL: Reports pain in right hand and wrist. NEUROLOGIC: Denies headache, numbness, dizziness, or weakness. PSYCHIATRIC: Denies anxiety or depression. PMFSH Past Medical History Medical History ADHD Anxiety and depression Asthma Bipolar 1 disorder Bronchitis Celiac disease Fracture of left foot History of dental problems History of PCOS Hypothyroidism Insulin resistance Migraines Pneumonia Vitamin B12 deficiency Surgical History Surgical History History of dental surgery History of tonsillectomy Family History Family History Father Unknown family medical history Mother Unknown family medical history Grandparent Asthma Cervical cancer FH: mental illness Diabetes mellitus Social History Social History Smoking packs per day: 1 Smoking cigarettes per day: 20.0 Years smoked: 8 Smoking pack-years: 8.00 Smoking status: Current every day smoker Tobacco type: cigarettes Second hand tobacco smoke exposure: No Alcohol intake: current Substance use: current Substance use type: marijuana Additional occupation/education comments: disable Gender identity (if verbalized by the patient): Female Sexual Orientation (if Verbalized by the Patient): Straight or Heterosexual Exam Narrative: GENERAL: Well-appearing, well-nourished, and in no acute distress. HEAD: Normocephalic, atraum
== END 2022-04-30 17:33 | disposition home or self-care (01) ==
PROVIDERS: Emergency Provider Nurse Practitioner; PCP Family Medicine
DX: S60.221A Contusion of right hand, initial encounter (principal); S60.211A Contusion of right wrist, initial encounter; W22.8XXA Striking against or struck by other objects, initial encounter; F90.9 Attention-deficit hyperactivity disorder, unspecified type; F31.9 Bipolar disorder, unspecified; F41.9 Anxiety disorder, unspecified; E28.2 Polycystic ovarian syndrome; E03.9 Hypothyroidism, unspecified; K90.0 Celiac disease; F17.210 Nicotine dependence, cigarettes, uncomplicated; J45.909 Unspecified asthma, uncomplicated
CPT/HCPCS: 73110; 73130; 99213; G0463

== ENCOUNTER 2023-10-29 12:02 | Emergency (ER) | payer MEDICARE, MEDICAID, SELFPAY ==
--- NOTE | ~2023-10-29 | XR_ITS ---
EXAMINATION: XR foot RT min 3V DATE: 10/29/2023 13:01 INDICATION: Right foot injury TECHNIQUE: Dorsoplantar, two oblique and lateral views of the right foot were obtained. COMPARISON: None. FINDINGS: Minimally displaced intra-articular fracture at the medial side of the head of the right first proxim al phalanx. This results in a 1.5 mm lucent fracture gap without significant incongruity at the dista l articular surface. Alignment remains otherwise normal. No other fractures identified. Minimal osteo arthritis at a few of the tarsal metatarsal and interphalangeal joints. Soft tissue swelling about th e great toe and mild subcutaneous edema along the lateral aspect of the distal lower leg. IMPRESSION: 1. Minimally displaced intra-articular fracture at the head of the right first proximal phalanx. Reviewed, dictated and finalized at location A.
[2023-10-29 12:25] VITALS: BP 151/96; PULSE 103; RESP 16; TEMP 36.8; O2SAT 97
--- NOTE | 2023-10-29 13:42 | ED.LOWEXIN ---
HPI - Extremity Injury (Lower) General Chief Complaint: Extremity Injury, Lower Stated Complaint: Right foot injury Time Seen by Provider: 10/29/23 13:20 Source: patient, RN notes reviewed and old records reviewed Mode of arrival: ambulatory Limitations: no limitations History of Present Illness HPI Narrative: 28 year old female who [facility] complaints of injury to her right foot along the base of her 1st toe which occurred when she rolled her foot and fell off of sidewalk 2 hours ago. Patient has some bruising and swelling along the base of right 1st toe with point tenderness. Patient reports history of previous heel fracture to the same foot in the past with history of developing blood clots in her lower leg and foot and was treated with Xarelto for 6 months. Patient has not applied ice or taken any OTC medications prior to arrival in clinic. MD complaint: foot injury (along base of 1st toe.) Onset (ago): hour(s) (2) Injury: Right: toes (1st toe) Place: street/outdoors Severity scale (1-10): 7 Exacerbating factors: weight bearing and movement Treatments prior to arrival: other (none) Related Data Home Medications Medication Instructions Recorded Confirmed levothyroxine 50 mcg capsule 50 mcg PO DAILY 08/02/19 01/19/21 trazodone 50 mg tablet 100 mg PO HS 08/02/19 01/19/21 dextroamphetamine-amphetamine ER 20 mg PO DAILY 12/20/20 01/19/21 20 mg 24hr capsule,extend release gabapentin 300 mg capsule 300 mg PO BID 12/20/20 01/19/21 lithium carbonate 450 mg 450 mg PO TID 12/20/20 01/19/21 tablet,extended release norgestimate 0.25 mg-ethinyl 1 tablet PO DAILY 12/20/20 01/19/21 estradiol 35 mcg tablet (Maribel) prazosin 1 mg capsule 1 mg PO HS 12/20/20 01/19/21 topiramate 25 mg tablet 25 mg PO BID 12/20/20 01/19/21 albuterol sulfate 2.5 mg/3 mL 2.5 mg continuous nebulization 01/19/21 01/19/21 (0.083 %) solution for nebulization Q4-6H PRN Shortness Of Breath Or Wheezing lorazepam 0.5 mg tablet 0.5 mg PO DAILY 01/19/21 01/19/21 Allergies Allergy/AdvReac Type Severity Reaction Status Date / Time gluten AdvReac Mild Diarrhea Verified 10/24/21 14:32 Review of Systems Review of Systems: CONSTITUTIONAL: Denies fever, chills, or sweats. EYES: Denies visual changes, redness, or discharge. ENT: Denies rhinorrhea, congestion, sore throat, or otalgia. CARDIOVASCULAR: Denies chest pain, palpitations, or edema. RESPIRATORY: Denies cough or dyspnea. GASTROINTESTINAL: Denies abdominal pain, nausea, vomiting, or diarrhea. GENITOURINARY: Denies dysuria or hematuria. SKIN: Denies rash or itching. MUSCULOSKELETAL: Denies back pain, positive for pain and swelling to right foot along base of 1st toe., or myalgia. NEUROLOGIC: Denies headache, numbness, or weakness. PSYCHIATRIC: Positive anxiety or depression. All systems reviewed & are unremarkable except as noted in HPI and below PMFSH Past Medical History Medical History ADHD Anxiety and depression Asthma Bipolar 1 disorder Bronchitis Celiac disease Fracture of left foot History of dental problems History of PCOS Hypothyroidism Insulin resistance Migraines Pneumonia Vitamin B12 deficiency Surgical History Surgical History History of dental surgery History of tonsillectomy Family History Family History Father Unknown family medical history Mother Unknown family medical history Grandparent Asthma Cervical cancer FH: mental illness Diabetes mellitus Social History Social History Smoking packs per day: 1 Smoking cigarettes per day: 20.0 Years smoked: 8 Smoking pack-years: 8.00 Smoking status: Current every day smoker Tobacco type: cigarettes Second hand tobacco smoke exposure: No
== END 2023-10-29 15:07 | disposition home or self-care (01) ==
PROVIDERS: Emergency Provider Registered Nurse; PCP Family Medicine
DX: S92.411A Displaced fracture of proximal phalanx of right great toe, initial encounter for closed fracture (principal); X50.9XXA Other and unspecified overexertion or strenuous movements or postures, initial encounter; J45.909 Unspecified asthma, uncomplicated; K90.0 Celiac disease; E03.9 Hypothyroidism, unspecified; E28.2 Polycystic ovarian syndrome; F31.9 Bipolar disorder, unspecified; F41.9 Anxiety disorder, unspecified; F90.9 Attention-deficit hyperactivity disorder, unspecified type; F17.210 Nicotine dependence, cigarettes, uncomplicated; F12.90 Cannabis use, unspecified, uncomplicated
CPT/HCPCS: 29515; 73630; 99214; G0463

== ENCOUNTER 2024-04-26 12:56 | Emergency (ER) | payer BC, SELFPAY ==
[2024-04-26 13:07] VITALS: BP 145/95; PULSE 110; RESP 20; TEMP 36.1; O2SAT 100
--- OUTSIDE RECORDS SUMMARY | 2024-04-26 13:10 | XMS_ITS | Continuity of Care Document ---
Author Organization [facility] Address [address] [place] [address] [address] [place] [address] Phone Care Team Providers Care Consumer Insights Specialist Name Role Phone Lobito Jimenez MD Unavailable Unavailable Allergies, Adverse Reactions, Alerts Substance Reaction Status Criticality No Known Allergies Active No Inform ation Medications Medication Instructions Dosage Effective Dates (start - stop) Status Comments lithium carbonate ER 300 mg tablet,extended release take 2 tablet by oral route 2 times every day 600 MG - Active Vraylar 4.5 mg capsule take 1 capsule by oral route every day 4.5 MG - Active Adderall XR 20 mg capsule,extended release take 1 capsule by oral route every day in the morning upon awakening 20 MG - Active Ativan 0.5 mg tablet take 2 tablet by or al route 3 times every day as needed 1 MG - Active gabapentin 300 mg capsule take 1 capsule by oral route 3 times every day 300 MG - Active trazodone 100 mg tablet take 1 tablet by oral route 3 times every day after meals 100 MG - Active Topamax 25 mg tablet take 1 tablet by or al route every day 25 MG - Active Advance Directives Directive Yes / No Effective Date File Name No Information Encounters Encounter Description Practice Location Reason(s) For Visit Diagnoses Date Provider Providers Copied on Encounter [facility], [address] [place] [address] [address], [place], [place], [id number], [place] tel:[phone] SEC Erika Garcia No Information 2 Tony Robin. [address] [facility], [address], [place], [place], [id number], [place]. tel:[phone] Family History Family Member Type Diagnosis Age At Onset Problem Family history of Diabetes ricardo bradley Payers Payer name Insurance type Covered constitution party ID Authoriza tion(s) No Information Social History Type Description Quantity Date Captured Comments Alcohol Use Details Caffeine Use Details Tobacco Use Status Heavy cigarette smok er (20-39 cigs/day) Smoking Status Heavy tobacco smoker Smoking Tobacco Use Details Cigarette: Age Started: 16 Cigarette: 1 Packs per day Sex Female Chief Complaint And Reason For Visit No Information Reason For Referral Reason For Referral No Information History Of Present Illness Encounter Date Complaint History Of Prese nt Illness No Information Functional Status Date Functional Assessmen t No Information Instructions Date Instruction Additional Infor mation No Information Assessments Type Assessment Date No Information Patient Care Teams Name Effective Dates (start - stop) Status Members No Information
--- OUTSIDE RECORDS SUMMARY | 2024-04-26 13:10 | XMS_ITS | CONTINUITY OF CARE DOCUMENT ---
Author Name christi barraza Address Unknown Organization [facility] Address [address] [place] [address] [address] [place] [address] Phone [phone] Care Team Providers Care Family Consumer Scientist Name Role Phone christi barraza Unavailable Unavailable INSURANCE PROVIDERS Payer name Policy type / Coverage type [place] red constitution party ID [facility] [facility] Medicaid 9 [id number]
--- OUTSIDE RECORDS SUMMARY | 2024-04-26 13:12 | XMS_ITS | Continuity of Care Document ---
Author Organization [facility] Address [address] [place] [address] [address] [place] [address] Phone Care Team Providers Care Knee Bolter Name Role Phone Lobito Jimenez MD Unavailable [...] Diagnoses Date Provider Providers Copied on Encounter [facility], [address] [place] [address] [address], [place], [place], [id number], [place] tel:[phone] SEC Erika Garcia No Information 2 Tony Robin. [address] [facility], [address], [place], [place], [id number], [place]. tel:[phone] Family History Family Member Type Diagnosis Age At Onset Problem Family history of Diabetes ricardo bradley Payers Payer name Insurance type Covered libertarian ID Authoriza tion(s) No Information Social History [...]
--- OUTSIDE RECORDS SUMMARY | 2024-04-26 13:12 | XMS_ITS | CONTINUITY OF CARE DOCUMENT ---
Author Name christi barraza Address Unknown Organization [facility] Address [address] [place] [address] [address] [place] [address] Phone [phone] Care Team Providers Care Rubber Insulator Name Role Phone christi barraza Unavailable Unavailable INSURANCE PROVIDERS Payer name Policy type / Coverage type [place] red libertarian ID [facility] Medicaid 9 [id number]
--- NOTE | 2024-04-26 13:37 | ED.FEMALEGU ---
HPI - Female Genitourinary General Chief complaint: Urogenital-Female Stated complaint: Vaginal Issue Time Seen by Provider: 04/26/24 13:25 Source: patient, RN notes reviewed and old records reviewed Mode of arrival: ambulatory Limitations: no limitations History of Present Illness HPI Narrative: 28 year old female present to express care with complaints of scratch to her vaginal area which occurred 2 days ago while having sexual relations and now it colby when she urinates when it hits the area. Patient denies any urinary frequency,urgency or CVA tenderness or any suprapubic pain. Patient reports that she put toilet tissue to area before she urinated to keep urine off of it so it wouldn't burn. Patient reports no vaginal discharge or any concern for STD exposure. MD elicited complaint: other (vaginal) Onset (ago): day(s) (2) Location of symptoms: vaginal Consistency: intermittent Vaginal discharge: none Vaginal bleeding: none Related Data Home Medications ?Medication ?Instructions ?Recorded ?Confirmed ?Last Taken ?Type levothyroxine 50 mcg capsule 50 mcg PO DAILY 08/02/19 04/26/24 Unknown History trazodone 50 mg tablet 100 mg PO HS 08/02/19 11/20/23 Unknown History dextroamphetamine-amphetamine ER 20 mg PO DAILY 12/20/20 11/20/23 Unknown History 20 mg 24hr capsule,extend release gabapentin 300 mg capsule 300 mg PO BID 12/20/20 11/20/23 Unknown History lithium carbonate 450 mg 450 mg PO TID 12/20/20 11/20/23 Unknown History tablet,extended release norgestimate 0.25 mg-ethinyl 1 tablet PO DAILY 12/20/20 11/20/23 Unknown History estradiol 35 mcg tablet (Maribel) prazosin 1 mg capsule 1 mg PO HS 12/20/20 11/20/23 Unknown History topiramate 25 mg tablet 25 mg PO BID 12/20/20 11/20/23 Unknown History albuterol sulfate 2.5 mg/3 mL 2.5 mg continuous nebulization 01/19/21 11/20/23 Unknown History (0.083 %) solution for nebulization Q4-6H PRN Shortness Of Breath Or Wheezing lorazepam 0.5 mg tablet 0.5 mg PO DAILY 01/19/21 11/20/23 Unknown History Allergies Allergy/AdvReac Type Severity Reaction Status Date / Time amoxicillin Allergy Mild Rash Verified 04/26/24 13:11 gluten AdvReac Mild Diarrhea Verified 04/26/24 13:11 Review of Systems Review of Systems: CONSTITUTIONAL: Denies fever, chills, or sweats. CARDIOVASCULAR: Denies chest pain, palpitations, or edema. RESPIRATORY: Denies cough or dyspnea. GASTROINTESTINAL: Denies abdominal pain, nausea, vomiting, or diarrhea. GENITOURINARY: Reports no dysuria, frequency, urgency. Denies flank pain or hematuria. reports abrasion at vaginal opening that is irritated when she urinates no bleeding or vaginal discharge. SKIN: Denies rash or itching. MUSCULOSKELETAL: Denies back pain or myalgia. Denies CVA tenderness NEUROLOGIC: Denies headache All systems reviewed & are unremarkable except as noted in HPI and below PMFSH Past Medical History Medical History Insulin resistance Fracture of left foot Vitamin B12 deficiency ADHD Anxiety and depression Bipolar 1 disorder Hypothyroidism History of PCOS Celiac disease Pneumonia Bronchitis Asthma History of dental problems Migraines Surgical History Surgical History History of dental surgery History of tonsillectomy Family History Family History Father Unknown family medical history Mother Unknown family medical history Grandparent Asthma Cervical cancer FH: mental illness Diabetes mellitus Social History Social History Social History: caffeine use Smoking packs per day: 1 Smoking cigarettes per day: 20.0 Years smoked: 8 Smoking pack-years: 8.00 Smoking status: Current every day smoker Tobacco type: cigarettes and e-cigarettes/vaping Second hand tobacco smoke exposure: No Alcohol intake: current Drinks per week: 2 Substance use: former Living arrangements: with family Occupation/Education: occupation 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 There is no relevant family history pertinent to the presenting complaint Exam Narrative: GENERAL: Well-appearing, well-nourished, obese and in no acute distress. HEAD: Normocephalic, atraumatic. NECK: Supple. no lymphadenopathy CHEST: Clear to auscultation. No respiratory distress.SO2 100% on room air HEART: Regular rate and rhythm. No murmur heard. Normal peripheral pulses. ABDOMEN: Soft, nontender, nondistended, normal active bowel sounds. No CVA tenderness, abrasion to vagina opening EXTREMITIES: Normal range of motion. No edema. SKIN: Warm, dry, no rash. NEURO: No focal deficits. Alert and oriented x3. Course Course Emergency Course: Patient is aware of diagnosis, understands and agrees to treatment plan.? Anticipatory guidance given.? Patient agrees to follow-up as directed and is aware of reasons to seek care at the emergency department. Portions of this record may have been created with voice recognition software Level of Care: Express Care Visit Vital Signs Vital signs: Vital Signs Temperature 36.1 C L 04/26/24 13:07 Pulse Rate 110 H 04/26/24 13:07 Respiratory Rate 20 04/26/24 13:07 Blood Pressure 145/95 H 04/26/24 13:07 Pulse Oximetry 100 04/26/24 13:07 Oxygen Delivery Room Air 04/26/24 13:07 Temperature 36.1 C L 04/26/24 13:07 Pulse Rate 110 H 04/26/24 13:07 Respiratory Rate 20 04/26/24 13:07 Blood Pressure 145/95 H 04/26/24 13:07 Pulse Oximetry 100 04/26/24 13:07 Oxygen Delivery Room Air 04/26/24 13:07 MDM - Female Genitourinary MDM Narrative Medical decision making narrative: Exam findings and UA show no acute concerns or changes; patient is non-toxic appearing and is in no distress.? Patient is appropriate for outpatient treatment and follow-up. Differential Diagnosis Differential diagnosis: Likely urinary tract infection, cystitis and other (abrasion to vaginal opening discomfort vaginal opening) Lab Data Attestation: I reviewed the patient's lab results. Critical Care Time Critical Care Time Critical Care Time: No Discharge Plan Discharge Clinical Impression: Vaginal irritation Patient Disposition: Home, Self-Care Condition: Stable Instructions: Nystatin (On the skin) Additional Instructions: Sitz's baths twice daily in warm clean water, then apply nystatin to irritated area watch for any infection--redness, swelling, drainage Tylenol or ibuprofen follow up with PCP in 7-10 days for a wound check recheck if develop fever, chills, increasing symptom Go to the ER if your symptoms become worse of if ANY new symptoms develop If your symptoms persist, change or worsen significantly before you can contact your personal physician then please, without delay, go to the emergency department for further evaluation. Follow-up with PCP in 7-10 days or sooner if needed Follow up with PCP soon in regards to your blood pressure which is elevated above threshold for referral. Blood pressure above 120/80 may indicate pre-hypertension.145/95 Patient Language: Kazakh Prescriptions: New nystatin 100,000 unit/gram cream 1 applic topical BID Qty: 15 0RF No Action albuterol sulfate 2.5 mg /3 mL (0.083 %) solution for nebulization 2.5 mg continuous nebulization Q4-6H PRN (Reason: Shortness Of Breath Or Wheezing) lorazepam 0.5 mg tablet 0.5 mg PO DAILY trazodone 50 mg tablet 100 mg PO HS levothyroxine 50 mcg Capsule 50 mcg PO DAILY norgestimate-ethinyl estradiol [Maribel] 0.25-35 mg-mcg tablet 1 tablet PO DAILY prazosin 1 mg capsule 1 mg PO HS topiramate 25 mg tablet 25 mg PO BID lithium carbonate 450 mg tablet extended release 450 mg PO TID dextroamphetamine-amphetamine 20 mg capsule,extended release 24hr 20 mg PO DAILY gabapentin 300 mg capsule 300 mg PO BID famotidine [Pepcid] 20 mg tablet 20 mg PO DAILY Qty: 14 0RF ibuprofen [IBU] 600 mg tablet 600 mg PO Q6H PRN (Reason: pain) Qty: 20 0RF ondansetron 4 mg tablet,disintegrating 4 mg PO Q6H PRN (Reason: nausea and vomiting) Qty: 10 0RF Follow-up/Referrals: Librado,NAIF Ni [Primary Care Provider] - Time of Disposition: 13:48 Quality [place] Coma Scale Eyes: Open Verbal: Oriented and Alert Motor: Follows Commands [place] Coma Total Score: 15
== END 2024-04-26 13:50 | disposition home or self-care (01) ==
PROVIDERS: Emergency Provider Registered Nurse; PCP Physician Assistant
DX: R10.2 Pelvic and perineal pain (principal); F90.9 Attention-deficit hyperactivity disorder, unspecified type; F41.9 Anxiety disorder, unspecified; F31.9 Bipolar disorder, unspecified; E03.9 Hypothyroidism, unspecified; E28.2 Polycystic ovarian syndrome; K90.0 Celiac disease; J45.909 Unspecified asthma, uncomplicated; F17.210 Nicotine dependence, cigarettes, uncomplicated; F17.290 Nicotine dependence, other tobacco product, uncomplicated
CPT/HCPCS: 99213; G0463

== ENCOUNTER 2024-06-06 09:58 | Emergency (ER) | payer BC, SELFPAY ==
--- NOTE | 2024-06-06 10:01 | ED_ITS ---
HPI - Dental/Oral General Chief complaint: Dental/Oral Stated complaint: Toothache Time Seen by Provider: 06/06/24 10:00 Source: patient Mode of arrival: ambulatory Limitations: no limitations History of Present Illness HPI Narrative: Patient is a 29-year-old female who presents with dental pain. Patient was seen in March for dental abscess and given antibiotics. Patient reports purulent drainage from gum line. Patient has dentist appointment on Monday. Missed appointment today due to lack of transportation. Related Data Home Medications ?Medication ?Instructions ?Recorded ?Confirmed ?Last Taken ?Type levothyroxine 50 mcg capsule 50 mcg PO DAILY 08/02/19 06/06/24 Unknown History albuterol sulfate 2.5 mg/3 mL 2.5 mg continuous nebulization 01/19/21 06/06/24 Unknown History (0.083 %) solution for nebulization Q4-6H PRN Shortness Of Breath Or Wheezing Nexplanon 06/06/24 Unknown History cariprazine 6 mg capsule (Vraylar) mg 06/06/24 Unknown History Allergies Allergy/AdvReac Type Severity Reaction Status Date / Time amoxicillin Allergy Mild Rash Verified 06/06/24 10:04 gluten AdvReac Mild Diarrhea Verified 06/06/24 10:04 Review of Systems Review of Systems: All systems reviewed & are unremarkable except as noted in HPI and below Constitutional: Constitutional: Denies body ache(s), Denies fever(s), Denies headache(s), Denies malaise and Denies weakness Eyes: Eyes: Denies loss of vision ENT: Denies otalgia, Reports facial pain (jaw), Denies headache(s), Denies nasal discharge, Denies sinus pain and Denies sore throat Cardiovascular: Cardiovascular: Denies chest pain, Denies irregular heart rhythm and Denies dyspnea Respiratory: Respiratory: Denies dyspnea Gastrointestinal: Gastrointestinal: Denies abdominal pain, Denies melena, Denies hematochezia, Denies diarrhea, Denies nausea and Denies vomiting Musculoskeletal: Musculoskeletal: Denies back pain, Denies myalgias and Denies arthralgias Integumentary/Breasts: Skin/Breast: Denies pruritus and Denies rash Neurologic: Denies headache(s), Denies loss of vision and Denies weakness Psychiatric: Psychiatric: Reports no additional psychiatric complaints PMFSH Past Medical History Medical History Insulin resistance Fracture of left foot Vitamin B12 deficiency ADHD Anxiety and depression Bipolar 1 disorder Hypothyroidism History of PCOS Celiac disease Pneumonia Bronchitis Asthma History of dental problems Migraines Surgical History Surgical History History of dental surgery History of tonsillectomy Family History Family History Father Unknown family medical history Mother Unknown family medical history Grandparent Asthma Cervical cancer FH: mental illness Diabetes mellitus Social History Social History Social History: caffeine use Smoking packs per day: 1 Smoking cigarettes per day: 20.0 Years smoked: 8 Smoking pack-years: 8.00 Smoking status: Current every day smoker Tobacco type: cigarettes and e-cigarettes/vaping Second hand tobacco smoke exposure: No Alcohol intake: current Drinks per week: 2 Substance use: former Living arrangements: with family Occupation/Education: occupation 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 There is no relevant family history pertinent to the presenting complaint. Exam Const: General: cooperative, healthy appearing, comfortable, no acute distress and well nourished Nutritional Appearance: well nourished Orientation/consciousness: patient oriented x3 Limitations: no limitations HENMT: Head: normal to inspection, normocephalic and atraumatic Ears: hearing grossly normal bilaterally, external ears normal, TM's normal bilaterally and mastoids normal bilaterally Face/Nose/Sinus: Normal external nose present, normal facial exam and face symmetric Face and sinus: normal facial exam and face symmetric Mouth: Yes Normal oral and palatal mucosa present, Yes lip normal, Yes tongue normal, Yes Normal salivary glands and ducts present and Yes moist mucous membranes Teeth and gingiva: abnormal tooth and associated gingiva upper left lateral incisor tender, with associated gingival edema and with associated gingival fluctuance Eyes: General: appearance normal, both eyes and all related structures Alignment and Position: alignment normal and position normal Periorbital: periorbital findings normal Eyelids: eyelids normal Pupils: Equal, round and reactive pupils present EOM: EOMs intact bilaterally Neck: Neck: normal visual inspection, full ROM, no lymphadenopathy and supple Chest: Chest palpation & inspection: normal inspection of the chest Resp: Effort & Inspection: normal respiratory effort and able to speak in complete sentences Auscultation: clear to auscultation bilaterally Cardio: Rate: regular rate Rhythm: regular rhythm Heart sounds: S1 normal heart sound present and S2 normal heart sound present GI: Inspection: normal to inspection Skin: General skin exam: normal color and no rashes or lesions noted Neuro: General: patient oriented x3 and moves all extremities Cranial nerves: Yes Equal, round and reactive pupils present Speech: normal speech Gait exam (Neuro): Normal gait present Extrem: General: normal to inspection, full ROM and no edema Psych: Appearance: grossly normal and well kempt Mental Status: mental status grossly normal Speech and movement: Normal speech and movement present Affect: normal affect Attitude: cooperative Thought process: Normal thought process present Course Course Emergency Course: Patient is aware of diagnosis, understands and agrees to treatment plan. Anticipatory guidance given. Patient agrees to follow-up as directed and is aware of reasons to seek care at the emergency department. Portions of this record may have been created with voice recognition software Level of Care: Express Care Visit Vital Signs Vital signs: Vital Signs Temperature 36.3 C L 06/06/24 10:18 Pulse Rate 97 06/06/24 10:18 Respiratory Rate 20 06/06/24 10:18 Blood Pressure 140/76 06/06/24 10:18 Pulse Oximetry 100 06/06/24 10:18 Temperature 36.3 C L 06/06/24 10:18 Pulse Rate 97 06/06/24 10:18 Respiratory Rate 20 06/06/24 10:18 Blood Pressure 140/76 06/06/24 10:18 Pulse Oximetry 100 06/06/24 10:18 Reviewed MDM - Dental/Oral MDM Narrative Medical decision making narrative: Patients pain and complaint coupled with physical findings are consistant with dentalgia. There are no focal signs of space occupying lesions that are compromising to the airway; no dysphagia, odynophagia, dysphonia, or dyspnea. No uvular deviation or soft palate edema. Patient is non-toxic appearing. The floor of the mouth is soft with no signs of Andre's Angina; no induration below mandible, no neck pain. Patient is without trismus or drooling and able to swallow secretions. Patient is felt appropriate for discharge home with dental follow up. Differential Diagnosis Differential diagnosis: Likely gingival abscess, dental caries, toothache and dental abscess Medical Records Attestation: I reviewed the patient's medical records. Discharge Plan Discharge Clinical Impression: Abscess, dental Patient Disposition: Home, Self-Care Condition: Stable Instructions: Dental Abscess (ED) Additional Instructions: Take antibiotic until it's gone. Brushing teeth at least twice daily with gentle flossing. Avoid temperature extremes---when you eat. Salt gargle to rinse your mouth after every meal You may apply ice to the face to reduce pain/swelling. For pain, you may take: Tylenol 650-1000mg by mouth every 4-6 hours. Do not exceed 4000mg in 24 hours. Advil (Ibuprofen) 600 mg by mouth every 6 hours. Do not exceed 2400mg in 24 hours. Also, recommend regular dental check up one-two times a year to prevent tooth decay and other periodontal disease. Follow-up with the dentist as soon as possible--see the list provided Patient Language: Bruneian Prescriptions: New clindamycin HCl 300 mg capsule 300 mg PO Q8H 10 Days Qty: 30 0RF No Action albuterol sulfate 2.5 mg /3 mL (0.083 %) solution for nebulization 2.5 mg continuous nebulization Q4-6H PRN (Reason: Shortness Of Breath Or Wheezing) Vraylar 6 mg capsule Nexplanon levothyroxine 50 mcg Capsule 50 mcg PO DAILY famotidine [Pepcid] 20 mg tablet 20 mg PO DAILY Qty: 14 0RF Follow-up/Referrals: Librado,NAIF Ni [Primary Care Provider] - 3 Days Stand Alone Forms: Work/School Release IP Time of Disposition: 10:17
[2024-06-06 10:18] VITALS: BP 140/76; PULSE 97; RESP 20; TEMP 36.3; O2SAT 100
== END 2024-06-06 10:25 | disposition home or self-care (01) ==
PROVIDERS: Emergency Provider Nurse Practitioner Family; PCP Physician Assistant
DX: K04.7 Periapical abscess without sinus (principal); F17.210 Nicotine dependence, cigarettes, uncomplicated; F17.290 Nicotine dependence, other tobacco product, uncomplicated; E03.9 Hypothyroidism, unspecified; E28.2 Polycystic ovarian syndrome; K90.0 Celiac disease; J45.909 Unspecified asthma, uncomplicated; E88.819 Insulin resistance, unspecified
CPT/HCPCS: 99213; G0463

== ENCOUNTER 2024-11-13 11:00 | Emergency (ER) | payer BC, SELFPAY ==
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
[2024-11-13 11:04] VITALS: BP 130/77; PULSE 100; RESP 16; TEMP 36.4; O2SAT 100
--- OUTSIDE RECORDS SUMMARY | 2024-11-13 11:10 | XMS_ITS | Encounter Summary ---
Author Organization [facility] Address [address] [place] [address] Phone Care Team Providers Care Chargemaster Specialist Name Role Phone Librado Raine Bullockelle PAC Primary Care Pro vider Encounter Details Date Type Department Care Team (Late Contact Info) Description 04/26/2024 Behavioral Health Patient Survey [facility] [address] [place] [address] Queenie Roca, DYNAMOTOR REPAIRER [address] [place] [address] Social History Tobacco Use Types Packs/Day Years Used Date Smoking Tobacco: Every Day Cigarettes Smokeless Tobacco: Never Comments:E-cigs Alcohol Use Standard Drinks/Week Comments Yes 6 (1 standard drink = 0.6 oz pur e alcohol) Occasionally 6/ month PHQ-2 Answer Date Recorded Total Score - Questions 1-9 5 12/2023 Sexually Active Control Partners Comments Yes Implant Male Comments No Sex and Gender Information Value Date Recorded Sex Assigned at Not on file Legal Sex Female 4:24 PM CDT Gender Identity Not on file Sexual Orientation Not on file documented as of this encounter Plan of Treatment Upcoming Encounters Date Type Department Care Team (Late Contact Info) Description 02/14/2025 2:00 PM CDT Office Visit [facility] - [facility] Medicine - [place] [address] [place] [address] Raine Pavon, PAC [address] [place] [address] documented as of this encounter Goals Goal Patient Goal Type Associated Problems Recent Progress Patient-Stated? Author Behavioral Health Behavioral Health Improving( 4:55 PM SKIVER OPERATOR) Yes Queenie Roca LCSW Note: GOAL: I think everything starts to spiral when I don't talk to someone.My emotions get out of balance. Goal Reviewed with: patient today Readiness to change: Ready to change Department associated with goal: [facility] Steps to achieve goal: Ayse will process thoughts and emotions related to interpersonal relationships Ayse will learn at least 3 emotion regulation skills Behavioral Health Behavioral Health Improving( 4:55 PM SKIVER OPERATOR) No Queenie Roca LCSW Note: GOAL: Ayse will manage symptoms of bipolar disorder Goal Reviewed with: patient today Readiness to change: Ready to change Department associated with goal: [facility] Steps to achieve goal: Ayse will learn to recognize symptoms of zelaelm Ayse will learn at least 3 strategies to manage high energy and manic behaviors Ayse will learn at least 3 strategies to use to improve symptoms of depression When I feel anxiety I feel overwhelmed. Behavioral Health Improving( 4:55 PM SKIVER OPERATOR) Yes Queenie Roca LCSW Note: Goal/Objective: Increase coping skills for anxiety. Anticipated Time Frame for Goal Completion: 6 months Goal Reviewed with: patient Readiness to change: Ready to change Department associated with goal: [facility] Steps to achieve goal: will attend counseling/psychotherapy sessions at least once monthly, at least 6 sessions, utilizing individual and/or group sessions to express thoughts and feelings. to identify, verbalize and process at least three contributing factors/triggers to anxiety. to identify and verbalize at least three actions/skills to prevent and/or cope with anxiety. to put into action, at least one time weekly, for one month, an action/skill to prevent and or cope with anxiety. documented as of this encounter Visit Diagnoses Not on filedocumented in this encounter Additional Health Concerns Assessment Noted Time PHQ-9 Depression Total Score: 5 11/20/19 24 4:00 PM CDT documented as of this encounter Care Teams Chargemaster Specialist Relationship Specialty Start Date End Date Raine Pavon, MARLON [address] [place] [address] PCP - General Physician Customer Services Supervisor 02/02/24 documented as of this encounter
--- OUTSIDE RECORDS SUMMARY | 2024-11-13 11:10 | XMS_ITS | Encounter Summary ---
Author Organization [facility] Address [address] [place] [address] Phone Care Team Providers Care Windscreen Fitter Name Role Phone Pop Puri MD Primary Care Provider [phone] Provider, None Primary Care Provider Raine Cruz Primary Care Pro vider Encounter Details Date Type Department Care Team (Late st Contact Info) Description 11/10/2021 Behavioral Health Patient Survey [facility] [address] [place] [address] Mychart, Generic Provider [address] [place] [address] Social History Tobacco Use Types Packs/Day Years Used Date Smoking Tobacco: Every Day Cigarettes Smokeless Tobacco: Never Comments:E-cigs Alcohol Use Standard Drinks/Week Comments Yes 0 (1 standard drink = 0.6 oz pur e alcohol) few PHQ-2 Answer Date Recorded Total Score - Questions 1-9 1 12/2020 Comments No Sex and Gender Information Value Date Recorded Sex Assigned at Not on file Legal Sex Female 4:24 PM CDT Gender Identity Not on file Sexual Orientation Not on file COVID-19 Exposure Response Date Recorded In the last 10 days, have yo u been in contact with someone who was confirmed or suspected to have Coronavirus/COVID-19? No / Unsure 11/10/2021 9:06 AM CDT documented as of this encounter Plan of Treatment Upcoming Encounters Date Type Department Care Team (Late st Contact Info) Description 02/14/2025 2:00 PM CDT Office Visit [facility] - Internal Medicine - [place] [address] [place] [id number] Librado Raine Caceres, [facility] [address] [place] [address] documented as of this encounter Goals Goal Patient Goal Type Associated Problems Recent Progress Patient-Stated? Author Behavioral Health Behavioral Health Improving( 4:55 PM THREAD SINGER) Yes Queenie Roca LCSW Note: GOAL: I think everything starts to spiral when I don't talk to someone.My emotions get out of balance. Goal Reviewed with: patient today Readiness to change: Ready to change Department associated with goal: [facility] Steps to achieve goal: Ayse will process thoughts and emotions related to interpersonal relationships Ayse will learn at least 3 emotion regulation skills Behavioral Health Behavioral Health Improving( 4:55 PM THREAD SINGER) No Queenie Roca LCSW Note: GOAL: Ayse will manage symptoms of bipolar disorder Goal Reviewed with: patient today Readiness to change: Ready to change Department associated with goal: [facility] Steps to achieve goal: Ayse will learn to recognize symptoms of zelalem Ayse will learn at least 3 strategies to manage high energy and manic behaviors Ayse will learn at least 3 strategies to use to improve symptoms of depression documented as of this encounter Visit Diagnoses Not on filedocumented in this encounter Additional Health Concerns Infection Onset Date Last Indicated Resolved Time COVID - 19 02/02/2024 02/02/2024 02/02/2024 3:05 PM CDT Assessment Noted Time PHQ-9 Depression Total Score: 1 10/21/19 21 1:00 PM CDT documented as of this encounter Care Teams Windscreen Fitter Relationship Specialty Start Date End Date [place] [address] PCP - General Internal Medicine 02/01/20 01/20/24 Provider, None [place] PCP - General 01/21/24 02/01/24 Raine Pavon, [facility] [address] [place] [address] PCP - General Physician Identity Management Consultant 02/02/24 documented as of this encounter
--- OUTSIDE RECORDS SUMMARY | 2024-11-13 11:10 | XMS_ITS | Clinical Summary ---
Author Organization [facility] Address [address] [place] [address] Phone Care Team Providers Care Financial Analysis Advisor Name Role Phone Raine Pavon PAC Primary Care Pro vider Allergies Active Allergy Reactions Criticality Noted Date Comments Amoxicillin Hives 02/08/2024 Gluten Meal Nausea Low 12/28/2012 Reaction: Stomach pains, Propranolol Itching 02/14/2024 Medications QUEtiapine (SEROQUEL) 25 MG Tablet Take 50 mg by mouth 2 times daily. Active Cariprazine HCl (VRAYLAR) 3 MG Capsule 4.5 mg. 6 Active levothyroxine (SYNTHROID) 50 MCG Tablet Take 1 Tablet by mouth daily. 90 Tablet 1 4 Active albuterol (Proventil HFA) 108 (90 Base) MCG/ACT Aerosol Solution take 2 Puffs by inhalation every 4 hours as needed for Wheezing. 18 g 2 4 Active hydrOXYzine (VISTARIL) 25 MG Capsule Take 2 Capsules by mouth 3 times daily as needed for Anxiety. 30 Capsule 5 Active Active Problems Problem Noted Date Diagnosed Date History of suicidal behavior 12/19/2023 Bipolar disorder, in partial remission, most recent episode mixed 11/10/2021 Overview (02/14/2024): Dr Yazan Can following PSYCHE Bipolar 1 disorder, mixed, moderate 11/20/2015 Encounters Date Type Department Care Team Description 11/05/2024 7:03 PM CDT - 11/06/2024 4:49 AM CDT Emergency [facility] Emergency [address] [place] [address] Pop Arzate MD Aggressive behavior Discharge Disposition: Short Term [facility] 11/05/2024 Travel 09/30/2024 2:55 AM CDT - 09/30/2024 4:40 AM CDT Emergency [facility] Emergency [address] [place] [address] Pop Arzate MD Dental abscess Discharge Disposition: Discharged to home or Selfcare 09/30/2024 Travel 09/24/2024 3:57 PM CDT - 09/24/2024 5:09 PM CDT Emergency [facility] Emergency [address] [place] [address] Ric He, PAC Anxiety Discharge Disposition: Discharged to home or Selfcare 09/24/2024 Travel 09/06/2024 1:32 PM CDT - 09/06/2024 5:10 PM CDT Emergency [facility] Emergency [address] [place] [address] Madison Conti APRN, COMPOSITION PROFESSOR Anxiety Discharge Disposition: Discharged to home or Selfcare 09/06/2024 Travel 08/26/2024 3:00 PM CDT Office Visit [facility] - [facility] [address] [place] [address] Raine Pavon, MARLON Anxiety (Primary Dx); Dental abscess; High risk medication use; Well adult exam; Need for hepatitis C screening test; Bipolar disorder, in partial remission, most recent episode mixed (HCC); Bipolar 1 disorder, mixed, moderate (HCC) Discharge Disposition: Discharged to home or Selfcare 08/26/2024 Telephone [facility] [address] [place] [address] Raine Pavon, MARLON 08/26/2024 Travel from Last 3 Months Immunizations Immunization Administration Dates Next Due TDAP Vaccine 04/17/2024 Family History Medical History Relation Name Comments Bipolar Disorder Mother Relation Name Status Comments Brother Alive Father Alive Mother Alive Sister x2 Alive Social History Tobacco Use Types Packs/Day Years Used Date Smoking Tobacco: Every Day Cigarettes Smokeless Tobacco: Never Tobacco Cessation:Ready to Q uit: Not Asked; Counseling Given: Not Answered Comments:E-cigs Alcohol Use Standard Drinks/Week Comments Yes 6 (1 standard drink = 0.6 oz pur e alcohol) Occasionally 6/ month PHQ-2 Answer Date Recorded Total Score - Questions 1-9 0 08/13 Sexually Active Control Partners Comments Yes Implant Male Comments No Sex and Gender Information Value Date Recorded Sex Assigned at Not on file Legal Sex Female 4:24 PM CDT Gender Identity Not on file Sexual Orientation Not on file Last Filed Vital Signs Vital Sign Reading Time Taken Comments Blood Pressure 122/85 11/06/2024 4:48 AM CDT Pulse 98 11/06/2024 4:48 AM CDT Temperature 36.6 C (97.8 F) 11/05/2024 7:07 PM CDT Respiratory Rate 18 11/06/2024 4:48 AM CDT Oxygen Saturation 99% 11/06/2024 4:48 AM CDT Inhaled Oxygen Concentration - - Weight 90.7 kg (200 lb) 11/05/2024 7:07 PM CDT Height 160 cm (5' 3) 11/05/2024 7:07 PM CDT Body Mass Index 35.43 11/05/2024 7:07 PM CDT Plan of Treatment Upcoming Encounters Date Type Department Care Team (Late st Contact Info) Description 02/14/2025 2:00 PM CDT Office Visit [facility] - [facility] [place] [address] [place] [phone] Raine Pavon, PAC [address] [place] [address] Health Maintenance Due Date Last Done Comments Hepatitis C Virus (HCV) Screening 1995 Hepatitis B Immunization (1 of 3 - 19+ 3-dose series) 2014 Pneumococcal Immunization Combined (1 of 2 - PCV) 2014 Pap Smear 2016 Human Papillomavirus (HPV) Immunization (3 - 3-dose series) 08/19/2020 05/27/2020, 10/15/2018 SARS-COV-2 Immunization (2 - season) 2024 09/07/2020 Influenza Immunization (Season Ended) 2025 03/24/2020, 05/22/2019, 02/22/2018, Additional history exists Td Immunization Every 10 Years (Adults With 1 Tdap) 04/17/2034 04/17/2024 Respiratory Syncytial Virus (RSV) Immunization (Adult) (1 - 1-dose 75+ series) 2070 DTaP/Tdap/Td Immunization Discontinued 04/17/2024 TdaP Immunization Discontinued 04/17/2024 Meningococcal Immunization (ACWY) Aged Out No longer eligible based on patient's age to complete this topic Rotavirus Immunization Aged Out No lo nger eligible based on patient's age to complete this topic Goals Goal Patient Goal Type Associated Problems Recent Progress Patient-Stated? Author Behavioral Health Behavioral Health Improving( 4:55 PM ALTERNATIVE MEDICINE PRACTITIONER) Yes Queenie Roca LCSW Note: GOAL: I think everything starts to spiral when I don't talk to someone.My emotions get out of balance. Goal Reviewed with: patient today Readiness to change: Ready to change Department associated with goal: [facility] Steps to achieve goal: Ayse will process thoughts and emotions related to interpersonal relationships Ayse will learn at least 3 emotion regulation skills Behavioral Health Behavioral Health Improving( 4:55 PM ALTERNATIVE MEDICINE PRACTITIONER) No Queenie Roca LCSW Note: GOAL: Ayse will manage symptoms of bipolar disorder Goal Reviewed with: patient today Readiness to change: Ready to change Department associated with goal: [facility] Steps to achieve goal: Ayse will learn to recognize symptoms of zelalem Ayse will learn at least 3 strategies to manage high energy and manic behaviors Ayse will learn at least 3 strategies to use to improve symptoms of depression When I feel anxiety I feel overwhelmed. Behavioral Health Improving( 4:55 PM ALTERNATIVE MEDICINE PRACTITIONER) Yes Queenie Roca, HORSE FARM MANAGER Note: Goal/Objective: Increase coping skills for anxiety. Anticipated Time Frame for Goal Completion: 6 months Goal Reviewed with: patient Readiness to change: Ready to change Department associated with goal: [facility] Steps to achieve goal: [...] to prevent and or cope with anxiety. Procedures Procedure Name Priority Date/Time Associated Diagnosis Comments POCT URINE HCG () STAT 11/05/2024 9:15 PM CDT URINALYSIS REFLEX IF INDICATED BY ABNORMAL RESULTS STAT 11/05/2024 7:48 PM CDT URINE DRUG SCREEN STAT 11/05/2024 7:4 8 PM CDT CBC WITH AUTO DIFFERENTIAL STAT 11/05/2024 7:37 PM CDT D-DIMER STAT 11/05/2024 7:37 PM CDT SALICYLATE LEVEL STAT 11/05/2024 7:37 PM CDT ACETAMINOPHEN (TYLENOL) STAT 11/05/2024 7:37 PM CDT THYROID STIMULATING HORMONE (TSH) STAT 11/05/2024 7:37 PM CDT MAGNESIUM (MG) STAT 11/05/2024 7:37 PM CDT ETHYL ALCOHOL (ETHANOL) STAT 11/05/2024 7:37 PM CDT CMP (COMPREHENSIVE METABOLIC PANEL) STAT 11/05/2024 7:37 PM CDT COMPLETE BLOOD COUNT (CBC) WITH DIFF STAT 11/05/2024 7:37 PM CDT SARS-COV-2 BY MOLECULAR STAT 11/05/2024 7:37 PM CDT CRITICAL CARE Routine 11/05/2024 7:36 PM CDT EKG 12 LEAD STAT 11/05/2024 7:09 PM CDT EKG SCAN 11/05/2024 12:00 AM CDT URINE DRUG SCREEN STAT 09/24/2024 4:2 4 PM CDT URINALYSIS REFLEX IF INDICATED BY ABNORMAL RESULTS STAT 09/24/2024 4:24 PM CDT POCT URINE HCG () STAT 09/06/2024 3:53 PM CDT CBC WITH AUTO DIFFERENTIAL STAT 09/06/2024 3:43 PM CDT THYROID STIMULATING HORMONE (TSH) STAT 09/06/2024 3:43 PM CDT CMP (COMPREHENSIVE METABOLIC PANEL) STAT 09/06/2024 3:43 PM CDT COMPLETE BLOOD COUNT (CBC) WITH DIFF STAT 09/06/2024 3:43 PM CDT from Last 3 Months Results * POCT Urine HCG () (11/05/2024 9:15 PM CDT) Only the most recent of2 resultswithin the time period is included. POC URINE Negative POC URINE CONTROL Thermal Surfacing Machine Operator Pass Urine 11/05/2024 9:15 PM CDT us Pop Arzate MD POINT OF CARE TESTING (ND SILVINOFL) Final Result * (ABNORMAL) Urinalysis with Reflex if Indicated (11/05/2024 7:48 PM CDT) Only the most recent of2 resultswithin the time period is included. SPECIFIC GRAVITY 1.030 1.003 - 1.030 11/05/2024 8:45 PM CDT [facility] URINE PH 5.0 5.0 - 9.0 11/05/2024 8:45 PM CDT [facility] WBC ESTERASE Negative Negative 11/05/2024 8:45 PM CDT [facility] NITRITE Negative Negative 11/05/2024 8:45 PM CDT [facility] PROTEIN, RANDOM URINE 100 mg/dL(A) Negative 11/05/2024 8:45 PM CDT [facility] URINE GLUCOSE, QUAL Negative Negative 11/05/2024 8:45 PM CDT [facility] URINE KETONES 15 mg/dL(A) Negative 11/05/2024 8:45 PM CDT [facility] UROBILINOGEN 1 mg/dL(A) Normal mg/dL 11/05/2024 8:45 PM CDT [facility] URINE BLOOD Negative Negative janelle/ul 11/05/2024 8:45 PM CDT [facility] URINALYSIS COLOR Dark Yellow 025 8:45 PM CDT [facility] URINALYSIS CLARITY Slightly Cloudy 11/05/2024 8:45 PM CDT [facility] WBC (Urine) Negative Negative, 0-5 /hpf 11/05/2024 8:45 PM CDT [facility] URINE RBC'S Negative Negative, 0-2 /hpf 11/05/2024 8:45 PM CDT [facility] EPITHELIAL CELLS Moderate amount /lpf 11/05/2024 8:45 PM CDT [facility] BACTERIA, URINE Moderate(A) Negative /hpf 11/05/2024 8:45 PM CDT [facility] URINE MUCOUS Many 11/05/2024 8:45 PM CDT [facility] CRYSTALS Calcium oxalate 11/05/2024 8:45 PM CDT [facility] Urine URINE SPECIMEN / Unknown Non-Phlebotomy Collection / Unknown 11/05/2024 7:48 PM CDT 11/05/2024 8:15 PM CDT us Pop Arzate MD URINE ORDERABLES Final Re sult [facility] [address] [place] [address] * (ABNORMAL) Urine Drug Screen (11/05/2024 7:48 PM CDT) Only the most recent of2 resultswithin the time period is included. UR AMPHETAMINE DETECTED(A) NON DETECTED 11/05/2024 8:36 PM CDT [facility] Comment: FOR MEDICAL USE ONLY. CUTOFF CONCENTRATION FOR DETECTED RESULT: AMPHETAMINE: 500 NG/ML UR BENZODIAZEPINES NON DETECTED NON DETECTED 11/05/2024 8:36 PM CDT [facility] Comment: FOR MEDICAL USE ONLY. CUTOFF CONCENTRATION FOR DETECTED RESULT: BENZODIAZAPINE: 200 NG/ML UR COCAINE METABOLITE DETECTED(A) NON DETECTED 11/05/2024 8:36 PM CDT [facility] Comment: FOR MEDICAL USE ONLY. CUTOFF CONCENTRATION FOR DETECTED RESULT: COCAINE: 150 NG/ML UR OPIATES NON DETECTED NON DETECTED 11/05/2024 8:36 PM CDT [facility] Comment: FOR MEDICAL USE ONLY. CUTOFF CONCENTRATION FOR DETECTED RESULT: OPIATES: 300 NG/ML UR PHENCYCLIDINE NON DETECTED NON DETECTED 11/05/2024 8:36 PM CDT [facility] Comment: FOR MEDICAL USE ONLY. CUTOFF CONCENTRATION FOR DETECTED RESULT: PCP: 25 NG/ML UR CANNABINOID DETECTED(A) NON DETECTED 11/05/2024 8:36 PM CDT [facility] Comment: FOR MEDICAL USE ONLY. CUTOFF CONCENTRATION FOR DETECTED RESULT: THC (MARIJUANA): 50 NG/ML UR BARBITURATE NON DETECTED NON DETECTED 11/05/2024 8:36 PM CDT [facility] Comment: FOR MEDICAL USE ONLY. CUTOFF CONCENTRATION FOR DETECTED RESULT: BARBITUATES: 200 NG/ML UR FENTANYL DETECTED(A) NON DETECTED 11/05/2024 8:36 PM CDT [facility] Comment: FOR MEDICAL USE ONLY. CUTOFF CONCENTRATION FOR DETECTED RESULT: FENTANYL: 1.0 NG/ML Urine Non-Phlebotomy Collection / Unknown 11/05/2024 7:48 PM CDT 11/05/2024 8:15 PM CDT Pop Arzate MD URINE ORDERABLES Final Re sult Performing Organization Address [facility] Co de Phone Number [facility] [address] [place] [address] * SARS-COV-2 BY MOLECULAR (11/05/2024 7:37 PM CDT) SARSCOV2 NOT DETECTED (Referenc e Range for this test is Not Detected) 11/05/2024 8:31 PM CDT [facility] Comment:This test was perfor med by a Reverse Director [employer] PCR Method. Other NASOPHARYNGEAL STRUCTURE / Unknown Non-Phlebotomy Collection / Unknown 11/05/2024 7:37 PM CDT 11/05/2024 7:50 PM CDT Pop Arzate MD MICROBIOLOGY - GENERAL OR DERABLES Final Result Performing Organization Address City/[facility]/ZIP Co de Phone Number [facility] [address] [place] [address] * (ABNORMAL) CBC with Auto Differential (11/05/2024 7:37 PM CDT) Only the most recent of2 resultswithin the time period is included. WBC 11.38 4.00 - 12.00 10(3)/mcL 11/05/2024 7:53 PM CDT [facility] RBC 5.03 3.80 - 5.30 10(6)/mcL 11/05/2024 7:53 PM CDT [facility] HEMOGLOBIN (HGB) 16.1(H) 12.0 - 15.8 g/dL 11/05/2024 7:53 PM CDT [facility] HEMATOCRIT (HCT) 46.9 36.0 - 47.0 % 11/05/2024 7:53 PM CDT [facility] MCV 93.2 82.0 - 96.0 fL 11/05/2024 7:53 PM CDT [facility] MCH 32.0 26.0 - 34.0 pg 11/05/2024 7:53 PM CDT [facility] MCHC 34.3 31.0 - 36.0 g/dL 11/05/2024 7:53 PM CDT [facility] PLATELET COUNT 386 140 - 440 10(3)/mcL 11/05/2024 7:53 PM CDT [facility] RDW 12.3 11.8 - 15.5 % 11/05/2024 7:53 PM CDT [facility] MPV 8.6(L) 9.7 - 12.4 fL 11/05/2024 7:53 PM CDT [facility] NEUTROPHILS 63.5 47.0 - 73.0 % 11/05/2024 7:53 PM CDT [facility] LYMPHOCYTES 30.1 18.0 - 42.0 % 11/05/2024 7:53 PM CDT [facility] MONOCYTES 5.3 4.0 - 12.0 % 11/05/2024 7:53 PM CDT [facility] EOSINOPHILS 0.3 0.0 - 5.0 % 11/05/2024 7:53 PM CDT [facility] BASOPHILS 0.4 0.0 - 1.0 % 11/05/2024 7:53 PM CDT [facility] IMMATURE GRANULOCYTE 0.4 0.0 - 0.4 % 11/05/2024 7:53 PM CDT [facility] Comment:Immature Granulocyte s includes Metamyelocytes, Myelocytes, and Promyelocytes. ABSOLUTE NEUTROPHILS 7.25 1.60 - 7.70 10(3)/[facility] 11/05/2024 7:53 PM CDT [facility] ABSOLUTE LYMPHOCYTES 3.42(H) 1.30 - 3.20 10(3)/[facility] 11/05/2024 7:53 PM CDT [facility] ABSOLUTE MONOCYTES 0.60 0.20 - 1.00 10(3)/[facility] 11/05/2024 7:53 PM CDT [facility] ABSOLUTE EOSINOPHIL 0.03 0.00 - 0.40 10(3)/[facility] 11/05/2024 7:53 PM CDT [facility] ABSOLUTE BASOPHILS 0.04 0.00 - 0.10 10(3)/[facility] 11/05/2024 7:53 PM CDT [facility] ABSOLUTE IMMATURE GRANULOCYTE 0.04(H) 0.00 - 0.03 10 (3) [facility]. 11/05/2024 7:53 PM CDT [facility] NRBC PER 100 WBC 0 11/06/19 7:53 PM CDT [facility] Blood Venipuncture / Unknown 11/05/2024 7:37 PM CDT 11/05/2024 7:50 PM CDT us Pop Arzate MD HEMATOLOGY ORDERABLES Fin al Result [facility] [address] [place] [address] * (ABNORMAL) Acetaminophen Level (11/05/2024 7:37 PM CDT) ACETAMINOPHEN 7(L) 10 - 30 mcg/mL 11/05/2024 8:14 PM CDT [facility] Blood Venipuncture / Unknown 11/05/2024 7:37 PM CDT 11/05/2024 7:50 PM CDT Pop Arzate MD CHEMISTRY ORDERABLES Alice l Result Performing Organization Address City/[facility] Co de Phone Number [facility] [address] [place] [address] * Thyroid Stimulating Hormone (TSH) (11/05/2024 7:37 PM CDT) Only the most recent of2 resultswithin the time period is included. TSH 0.827 0.300 - 5.000 mIU/L 11/05/2024 8:32 PM CDT [facility] Blood Venipuncture / Unknown 11/05/2024 7:37 PM CDT 11/05/2024 7:50 PM CDT Pop Arzate MD CHEMISTRY ORDERABLES Alice l Result Performing Organization Address [facility] Co de Phone Number [facility] [address] [place] [address] * (ABNORMAL) Salicylate Level (11/05/2024 7:37 PM CDT) SALICYLATE <5.0(L) 15.0 - 30.0 mg/dL 11/05/2024 8:14 PM CDT [facility] Blood Venipuncture / Unknown 11/05/2024 7:37 PM CDT 11/05/2024 7:50 PM CDT Pop Arzate MD CHEMISTRY ORDERABLES Alice l Result Performing Organization Address City/[facility]/ZIP Co de Phone Number [facility] [address] [place] [address] * Magnesium (MG) (11/05/2024 7:37 PM CDT) MAGNESIUM 2.4 1.6 - 2.6 mg/dL 11/05/2024 8:14 PM CDT [facility] Blood Venipuncture / Unknown 11/05/2024 7:37 PM CDT 11/05/2024 7:50 PM CDT Pop Arzate MD CHEMISTRY ORDERABLES Alice l Result [facility] [address] [place] [address] * ETOH Level (11/05/2024 7:37 PM CDT) ETHANOL <10 <10 mg/dL 11/05/2024 8:1 4 PM CDT [facility] Blood Venipuncture / Unknown 11/05/2024 7:37 PM CDT 11/05/2024 7:50 PM CDT Pop Arzate MD CHEMISTRY ORDERABLES Alice l Result Performing Organization Address [facility] Co de Phone Number [facility] [address] [place] [address] * D-DIMER [id number] (11/05/2024 7:37 PM CDT) D DIMER <=0.27 <0.50 mcg/mL FEU 11/05/2024 8:10 PM CDT [facility] Blood Venipuncture / Unknown 11/05/2024 7:37 PM CDT 11/05/2024 7:50 PM CDT Narrative [facility] - 11/05/2024 8:10 PM CDT The FDA has approved this method to exclude the diagnosis of DVT and/or PE at the cutoff value of <0.50 mcg/mL FEU. Pop Arzate MD HEMATOLOGY ORDERABLES Fin al Result Performing Organization Address City/[facility]/ZIP Co de Phone Number [facility] [address] [place] [address] * (ABNORMAL) CMP (Comprehensive Metabolic Panel) (11/05/2024 7:37 PM CDT) Only the most recent of2 resultswithin the time period is included. SODIUM 139 136 - 145 mmol/L 11/05/2024 8:14 PM CDT [facility] POTASSIUM 3.4(L) 3.5 - 5.1 mmol/L 11/05/2024 8:14 PM CDT [facility] CHLORIDE 110(H) 98 - 107 mmol/L 11/05/2024 8:14 PM CDT [facility] CO2, VENOUS 21(L) 22 - 30 mmol/L 11/05/2024 8:14 PM CDT [facility] ANION GAP 11.4 <18.0 mmol/L 11/05/2024 8:14 PM CDT [facility] GLUCOSE 109(H) 70 - 99 mg/dL 11/05/2024 8:14 PM CDT [facility] BUN 14 5 - 18 mg/dL 11/05/2024 8:14 PM CDT [facility] CREATININE, BLOOD 1.38(H) 0.60 - 1.00 mg/dL 11/05/2024 8:14 PM CDT [facility] BUN/CREATININE RATIO 10(L) 12 - 20 ratio 11/05/2024 8:14 PM CDT [facility] TOTAL PROTEIN 7.4 6.0 - 8.0 g/dL 11/05/2024 8:14 PM CDT [facility] ALBUMIN 4.7 3.5 - 5.0 g/dL 11/05/2024 8:14 PM CDT [facility] A/G RATIO 1.7 1.0 - 2.2 11/05/2024 8:14 PM CDT [facility] CALCIUM 9.5 8.7 - 10.5 mg/dL 11/05/2024 8:14 PM CDT [facility] T BILI 0.4 0.2 - 1.2 mg/dL 11/05/2024 8:14 PM CDT [facility] SGOT (AST) 18 <43 U/L 11/05/2024 8:14 PM CDT [facility] SGPT (ALT) 22 <56 U/L 11/05/2024 8:14 PM CDT [facility] ALKALINE PHOSPHATASE 76 40 - 150 U/L 11/05/2024 8:14 PM CDT [facility] GFR, ESTIMATED 53(L) >=60 11/05/2024 8:14 PM CDT [facility] Comment: Creatinine Clearance is the preferred criteria for selecting drug dose adjustments in renally impaired patients. The GFR is provided as additional pertinent clinical information. GFR is reported in mL/min/1.73 sq m. Calculation based on the Chronic Kidney Disease Epidemiology Collaboration (CKD- EPI) equation refit without adjustment for race. GFR, EST. 55(L) >=60 025 8:14 PM CDT [facility] GFR, EST. NONAFRICAN 45(L) >=60 11/05/2024 8:14 PM CDT [facility] Blood Venipuncture / Unknown 11/05/2024 7:37 PM CDT 11/05/2024 7:50 PM CDT us Pop Arzate MD CHEMISTRY ORDERABLES Alice l Result [facility] [address] [place] [address] * Critical Care (11/05/2024 7:36 PM CDT) Narrative Pop Arzate MD - 11/05/2024 7:36 PM CDT Pop Arzate MD 11/06/2024 4:22 AM Critical Care Performed by: Pop Arzate MD Authorized by: Pop Arzate MD Critical care provider statement: Critical care time (minutes): 50 Critical care was necessary to treat or prevent imminent or life-threatening deterioration of the following conditions: Severe agitation. Critical care was time spent personally by me on the following activities: Development of treatment plan with patient or surrogate, evaluation of patient's response to treatment, examination of patient, obtaining history from patient or surrogate, ordering and performing treatments and interventions, ordering and review of laboratory studies, ordering and review of radiographic studies, pulse oximetry, re-evaluation of patient's condition and review of old charts I assumed direction of critical care for this patient from another provider in my specialty: yes Care discussed with: accepting provider at another facility Pop Arzate MD PROCEDURE/MINOR SURGICAL ORDERABLES Final Result * EKG 12 LEAD (11/05/2024 7:09 PM CDT) Ventricular Rate 97 BPM EXTERNAL EKG Atrial Rate 97 BPM EXTERNAL EKG P-R Interval 182 ms EXTERNAL EKG QRS Duration 84 ms EXTERNAL EKG Q-T Duration 360 ms EXTERNAL EKG QTC CALCULATION 457 ms EXTERNAL EKG P [place] 50 degrees EXTERNAL EKG R [place] 18 degrees EXTERNAL EKG T [place] 29 degrees EXTERNAL EKG 11/05/2024 7:09 PM CDT Impressions EXTERNAL EKG - 11/09/2024 7:11 AM CDT Normal sinus rhythm Normal ECG When compared with ECG of 01-FEB-2020 23:43, AR interval has decreased Confirmed by Leanna Venegas ([id number]) on 11/09/2024 7:11:31 AM Narrative Procedure Note Leanna Venegas MD PhD - 11/09/2024 IMPRESSION: Normal sinus rhythm Normal ECG When compared with ECG of 01-FEB-2020 23:43, AR interval has decreased Confirmed by Leanna Venegas ([id number]) on 11/09/2024 7:11:31 AM Result [facility] Pop Arzate MD IMG ECG ORDERABLES Final Result EXTERNAL EKG * EKG SCAN (11/05/2024 12:00 AM CDT) 11/05/2024 us Provider Scan IMG ECG ORDERABLES Final Result RESULTING AGENCY from Last 3 Months Insurance MEDICARE [place] Care Teams Financial Analysis Advisor Relationship Specialty Start Date End Date Raine Pavon, MARLON [address] [place] [address] PCP - General Physician Assembler [employer] 02/02/24
--- NOTE | 2024-11-13 11:32 | ED.UPPEXIN ---
HPI - Extremity Injury (Upper) General Chief Complaint: Extremity Injury, Upper Stated Complaint: right hand pointer finger injury Time Seen by Provider: 11/13/24 11:25 Source: patient and RN notes reviewed Mode of arrival: ambulatory Limitations: no limitations History of Present Illness HPI narrative: Patient presents today with an injury to the right 2nd finger. Yesterday she slammed in a door in her home and is having pain to the proximal and middle phalanx, states it is more swollen today than yesterday. Currently rates her pain 11/21 and has been taking ibuprofen without much relief. Denies numbness or tingling. Related Data Home Medications ?Medication ?Instructions ?Recorded ?Confirmed ?Last Taken ?Type levothyroxine 50 mcg capsule 50 mcg PO DAILY 08/02/19 06/06/24 Unknown History albuterol sulfate 2.5 mg/3 mL 2.5 mg continuous nebulization 01/19/21 06/06/24 Unknown History (0.083 %) solution for nebulization Q4-6H PRN Shortness Of Breath Or Wheezing Nexplanon 06/06/24 Unknown History cariprazine 6 mg capsule (Vraylar) mg 06/06/24 Unknown History Allergies Allergy/AdvReac Type Severity Reaction Status Date / Time amoxicillin Allergy Mild Rash Verified 06/06/24 10:04 gluten AdvReac Mild Diarrhea Verified 06/06/24 10:04 PMFSH Past Medical History Medical History Insulin resistance Fracture of left foot Vitamin B12 deficiency ADHD Anxiety and depression Bipolar 1 disorder Hypothyroidism History of PCOS Celiac disease Pneumonia Bronchitis Asthma History of dental problems Migraines Surgical History Surgical History History of dental surgery History of tonsillectomy Family History Family History Father Unknown family medical history Mother Unknown family medical history Grandparent Asthma Cervical cancer FH: mental illness Diabetes mellitus Social History Social History Social History: caffeine use Smoking packs per day: 1 Smoking cigarettes per day: 20.0 Years smoked: 8 Smoking pack-years: 8.00 Smoking status: Current every day smoker Tobacco type: cigarettes and e-cigarettes/vaping Second hand tobacco smoke exposure: No Alcohol intake: current Drinks per week: 2 Substance use: former Living arrangements: with family Occupation/Education: occupation 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 Please see nursing chart for further information. There is no relevant family history pertinent to the presenting complaint Exam Narrative: GENERAL: Well-appearing, well-nourished, and in no acute distress. HEAD: Normocephalic, atraumatic. EYES: EOMI. No redness or drainage. Conjunctivae normal. ENT: Mucous membranes pink and moist. NECK: Normal AROM. CHEST: No respiratory distress. EXTREMITIES: Right 2nd finger: Tenderness, mild edema, and mild palmar ecchymosis from the MCP to the D IP. Distal sensation intact. Capillary refill normal. Decreased range of motion due to pain and swelling. SKIN: Warm, dry, no rash. Capillary refill normal. Normal skin turgor. NEURO: No focal deficits. Alert and oriented x3. Gait steady. PSYCH: Normal affect. No signs of depression or anxiety. Course Course Level of Care: Express Care Visit Vital Signs Vital signs: Vital Signs Temperature 97.5 F L 11/13/24 11:04 Pulse Rate 11/13/24 11:04 Respiratory Rate 16 11/13/24 11:04 Blood Pressure 130/77 11/13/24 11:04 Pulse Oximetry 11/13/24 11:04 Oxygen Delivery Room Air 11/13/24 11:04 Temperature 97.5 F L 11/13/24 11:04 Pulse Rate 100 11/13/24 11:04 Respiratory Rate 16 11/13/24 11:04 Blood Pressure 130/77 11/13/24 11:04 Pulse Oximetry 11/13/24 11:04 Oxygen Delivery Room Air 11/13/24 11:04 Reviewed Procedures Orthopedic Splinting/Casting Injury #1: Splinting/Casting Date: 11/13/24 Splinting/Casting Time: 12:01 Side: right Upper Extremity Injury Location: finger (right 2nd) Upper Extremity Immobilizer: finger (other) Pre-Procedure Neuro Vascular Exam: normal Post-Procedure Neuro Vascular Exam: normal Additional Comments: placed by tech MDM - Extremity Injury (Upper) MDM Narrative Medical decision making narrative: X-ray shows avulsion fracture the base of the middle phalanx. Finger splint applied by tech for immobilization and comfort. Elevation, ice, and NSAIDs discussed with patient as well. No prescription medications indicated at this time. Vital signs stable. Anticipatory guidance given. Differential Diagnosis Differential diagnosis: Likely finger sprain and other (Contusion, finger fracture) Imaging Data Radiologist's impression: ITS Impressions Finger X-Ray 11/13/24 11:48 IMPRESSION: 1. Minimally displaced small volar plate avulsion fracture at the base of the right second middle phalanx. Critical Care Time Critical Care Time Critical Care Time: No Discharge Plan Discharge Clinical Impression: Avulsion fracture of middle phalanx of finger, Crush injury Patient Disposition: Home Condition: Stable Instructions: Finger Fracture (ED) Additional Instructions: Your x-ray shows a chip off of your finger bone. You have been placed in a splint to help with swelling and immobilization. Ice and elevate your finger. Take anti-inflammatory such as Aleve or ibuprofen to help with pain and inflammation. Follow-up with your PCP or hand specialist for any additional concerns. Your blood pressure was elevated above 120/80 today at Urgent Care. This puts you above the threshold for follow up. Please schedule a followup visit with your personal physician as soon as possible, for further evaluation and treatment. Even blood pressure exceeding 120/80 may indicate pre-hypertension. Patient Language: Paraguayan Prescriptions: No Action albuterol sulfate 2.5 mg /3 mL (0.083 %) solution for nebulization 2.5 mg continuous nebulization Q4-6H PRN (Reason: Shortness Of Breath Or Wheezing) Vraylar 6 mg capsule clindamycin HCl 300 mg capsule 300 mg PO Q8H 10 Days Qty: 30 0RF Nexplanon levothyroxine 50 mcg Capsule 50 mcg PO DAILY famotidine [Pepcid] 20 mg tablet 20 mg PO DAILY Qty: 14 0RF Follow-up/Referrals: Librado,NAIF Ni [Primary Care Provider] - Time of Disposition: 12:01
== END 2024-11-13 12:07 | disposition home or self-care (01) ==
PROVIDERS: Emergency Provider Nurse Practitioner; PCP Physician Assistant
DX: S62.620A Displaced fracture of middle phalanx of right index finger, initial encounter for closed fracture (principal); W23.2XXA Caught, crushed, jammed or pinched between a moving and stationary object, initial encounter; F17.210 Nicotine dependence, cigarettes, uncomplicated; F17.290 Nicotine dependence, other tobacco product, uncomplicated; E88.819 Insulin resistance, unspecified; E03.9 Hypothyroidism, unspecified; E28.2 Polycystic ovarian syndrome; K90.0 Celiac disease; J45.909 Unspecified asthma, uncomplicated
CPT/HCPCS: 29130; 73140; 99213; G0463

== ENCOUNTER 2025-04-08 08:05 | Emergency (ER) | payer BC, SELFPAY ==
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
--- OUTSIDE RECORDS SUMMARY | 2025-04-08 08:08 | XMS_ITS | Encounter Summary ---
Author Organization [facility] Address [address] [place] [address] Phone Care Team Providers Care Social Service Technician Name Role Phone Pop Puri MD Primary Care Provider [phone] Provider, None Primary Care Provider Raine Cruz PAC Primary Care Pro vider Encounter Details Date Type Department Care Team (Late st Contact Info) Description 11/10/2021 Behavioral Health Patient Survey [facility] [address] [place] [address] Mychart, Generic Provider [address] [place] [address] Social History Tobacco Use Types Packs/Day Years [...] (Latest Contact Info) Description 04/08/2025 2:30 PM PRINCIPAL EXAMINER Occupational Therapy [facility] [address] [facility], [address] [phone] Terrance Matta MD [address] [place] [address] Chiqui Carballo, OT [place] Discharge Disposition: Discharged to home or Selfcare 04/09/2025 3:30 PM PRINCIPAL EXAMINER [facility] [address] [place] [phone] Kranthi Smith, PATIENT SAFETY OFFICER [address] [place] [address] Discharge Disposition: Discharged to home or Selfcare 04/16/2025 3:30 PM PRINCIPAL EXAMINER [facility]patient [facility] [address] [place] [phone] Kranthi Smith, PATIENT SAFETY OFFICER [address] [place] [address] Discharge Disposition: Discharged to home or Selfcare 04/23/2025 3:30 PM PRINCIPAL EXAMINER [facility] [address] [place] [phone] Kranthi Smith, PATIENT SAFETY OFFICER [address] [place] [address] Discharge Disposition: Discharged to home or Selfcare 04/25/2025 1:15 PM PRINCIPAL EXAMINER [facility] [address] [place] [phone] Queenie Roca, PATIENT SAFETY OFFICER [address] [place] [address] Discharge Disposition: Discharged to home or Selfcare 04/30/2025 3:30 PM PRINCIPAL EXAMINER Outpatient Clinic Visit [facility] [address] [place] [phone] Kranthi Smith, PATIENT SAFETY OFFICER [address] [place] [address] Discharge Disposition: Discharged to home or Selfcare 05/12/2025 11:00 AM PRINCIPAL EXAMINER Outpatient Clinic Visit [facility] [address] [place] [phone] Queenie Roca LCSW [address] [place] [address] Discharge Disposition: Discharged to home or Selfcare documented as of this encounter Goals Goal Patient Goal Type Associated Problems Recent Progress Patient-Stated? Author Behavioral Health Behavioral Health On track(2024 10:22 AM PRINCIPAL EXAMINER) Yes Queenie Roca LCSW Note: GOAL: Medication adhereance Goal Reviewed with: patient today Readiness to change: Ready to change Department associated with goal: [facility] Steps to achieve goal: Will take medication as prescribed Will take medication consistently without stopping Ayse will develop ways to make medication a daily routine such as setting an alarm on her phone. Behavioral Health Behavioral Health On track(2024 10:22 AM PRINCIPAL EXAMINER) No Queenie Roca LCSW Note: GOAL: Ayse will manage symptoms of bipolar disorder Goal Reviewed with: patient today Readiness to change: Ready to change Department associated with goal: [facility] Steps to achieve goal: [...] documented as of this encounter Care Teams Social Service Technician Relationship Specialty Start Date End Date Pop Puri MD [address] [place] [address] PCP - General Internal Medicine 02/01/20 01/20/24 Provider, None [place] PCP - General 01/21/24 02/01/24 Raine Pavon PAC [place] PCP - General Physician Machine Quilt Stuffer 02/02/24 documented as of this encounter
--- OUTSIDE RECORDS SUMMARY | 2025-04-08 08:08 | XMS_ITS | Encounter Summary ---
Author Organization [facility] Address [address] [place] [address] Phone Care Team Providers Care Manager Corporate Strategy Name Role Phone Raine Pavon [facility] Primary Care Pro vider Reason for Referral * PT/OT/ST (Routine) - Authorized Specialty Diagnoses / Procedures Referred By Shawn glasgow Referred To Contact Occupational Therapy Diagnoses Pain in right hand Terrance Matta MD Phone: tel: fax: [facility] at [address] [address] Phone: tel: fax: Referral ID Status Reason Start Date Expiration Date V isits Requested Visits Authorized [id number] Authorized 02/06/2025 100 60 Scheduling Instructions Encounter Details Date Type Department Care Team (Latest Contact Info) Description 02/06/2025 Transcribe Orders [facility] [address] [place] [phone] Terrance Matta MD [address] [place] [address] Pain in right hand (Primary Dx) Social History Tobacco Use Types Packs/Day Years [...] (Latest Contact Info) Description 04/08/2025 2:30 PM GRAB DRIVER Occupational Therapy [facility] [address] [facility] [address] [phone] Terrance Matta MD [address] [place] [address] Chiqui Carballo, OT [place] Discharge Disposition: Discharged to home or Selfcare 04/09/2025 3:30 PM GRAB DRIVER [facility] [address] [place] [phone] Kranthi Smith, [address] [place] [address] Discharge Disposition: Discharged to home or Selfcare 04/16/2025 3:30 PM GRAB DRIVER Outpatient [facility] [address] [place] [phone] Kranthi Smith, [address] [place] [address] Discharge Disposition: Discharged to home or Selfcare 04/23/2025 3:30 PM GRAB DRIVER Outpatient [facility] [address] [place] [phone] Kranthi Smith, [address] [place] [address] Discharge Disposition: Discharged to home or Selfcare 04/25/2025 1:15 PM GRAB DRIVER Outpatient Clinic Visit [facility] [address] [place] [phone] Queenie Roca, [address] [place] [address] Discharge Disposition: Discharged to home or Selfcare 04/30/2025 3:30 PM GRAB DRIVER Outpatient Clinic Visit [facility] [address] [place] [phone] Kranthi Smith, [address] [place] [address] Discharge Disposition: Discharged to home or Selfcare 05/12/2025 11:00 AM GRAB DRIVER Outpatient Clinic Visit [facility] [address] [place] [phone] Queenie Roca, [address] [place] [address] Discharge Disposition: Discharged to home or Selfcare Scheduled Referrals Name Type Priority Associated Diagnoses Order Schedule OCCUPATIONAL THERAPY REFERRAL Outpatient Referral Routine Pain in right hand Expected: 02/06/2025, Expires: 02/06/2026 documented as of this encounter Goals Goal Patient Goal Type Associated Problems Recent Progress Patient-Stated? Author Behavioral Health Behavioral Health On track(2024 10:22 AM GRAB DRIVER) Yes Queenie Roca LCSW Note: GOAL: Medication adhereance Goal Reviewed with: patient today Readiness to change: Ready to change Department associated with goal: [facility] Steps to achieve goal: Will take medication as prescribed Will take medication consistently without stopping Ayse will develop ways to make medication a daily routine such as setting an alarm on her phone. Behavioral Health Behavioral Health On track(2024 10:22 AM GRAB DRIVER) No Queenie Rcoa LCSW Note: GOAL: Ayse will manage symptoms of bipolar disorder Goal Reviewed with: patient today Readiness to change: Ready to change Department associated with goal: [facility] Steps to achieve goal: Ayse will learn to recognize symptoms of zelalem Ayse will learn at least 3 strategies to manage high energy and manic behaviors Ayse will learn at least 3 strategies to use to improve symptoms of depression When I feel anger I need to learn how to control it. Behavioral Health Improving( 10:22 AM GRAB DRIVER) Yes Queenie Roca LCSW Note: Goal/Objective: Increase coping skills for anger. Anticipated Time Frame for Goal Completion: 6 months Goal Reviewed with: patient Readiness to change: Ready to change Department associated with goal: [facility] Steps to achieve goal: [...] to prevent and or cope with anger. documented as of this encounter Visit Diagnoses Diagnosis Pain in right hand- Primary documented in this encounter Additional Health Concerns Assessment Noted Time PHQ-9 Depression Total Score: 0 08/27/19 25 3:08 PM CDT documented as of this encounter Care Teams Manager Corporate Strategy Relationship Specialty Start Date End Date Raine Pavon PAC PCP - General Physician Block Sawyer 02/02/24 documented as of this encounter
--- OUTSIDE RECORDS SUMMARY | 2025-04-08 08:08 | XMS_ITS | Clinical Summary ---
Author Organization [facility] Address [address] [place] [address] Care Team Providers Care Indirect Sales Representative Name Role Phone Aurelia Puri APRN-CIRCUS TRAIN SUPERVISOR Primary Care Provider Source Comments [facility],non-owned Affiliates and Associated Physician Practices is amultiple site organization consisting of ambulatory clinics and hospital sitesin [place], [place], [place] and [place]. This disclosure is being madepursuant to the Care Everywhere program and may not contain all information available regarding this patient. Last updated 18.[facility] Allergies Active Allergy Reactions Criticality Noted Date Comments Gluten 12/28/2012 Medications * This document contains information received from the source organization and may not represent a complete record from that organization. * Be aware that medications may not be up to date on this document. Alwaysverify current medications with the patient. clonazePAM (KLONOPIN) 0.5 MG tablet Take 0.25 mg by mouth 2 times daily. Active metFORMIN (GLUCOPHAGE) 500 MG tablet Take 500 mg by mouth 2 times daily with breakfast and dinner. Active lithium carbonate (ESKALITH) 300 MG capsule Take 300 mg by mouth 2 times daily. 300 mg in AM, 300 mg at 1200 and 600mg in PM, Active levothyroxine (SYNTHROID) 75 MCG tablet Take 75 mcg by mouth daily before breakfast. Active risperiDONE (RISPERDAL) 1 MG tablet Take 1 mg by mouth 2 times daily. Active hydrOXYzine hcl (ATARAX) 25 MG tablet Take 2 (two) tablets by mouth as needed Active ibuprofen (MOTRIN) 400 MG tablet Take 1 Tab by mouth every 6 hours as needed for Pain. 240 2 Active acetaminophen (TYLENOL) 325 MG tablet Take 1 Tab by mouth every 6 hours as needed for Fever or Pain. Maximum allowable Acetaminophen amount = 4 Grams (4000 mg) / 24 hours. 100 Tab 0 2 Active sertraline (ZOLOFT) 100 MG tablet Take 100 mg by mouth once daily. Active medroxyPROGEST ERone (PROVERA) 10 MG tablet Take 10 mg by mouth once daily. Active predniSONE (DELTASONE) 20 MG tablet Take 3 Tabs by mouth once daily. 15 Tab 0 3 Active cariprazine (Vraylar) 4.5 MG capsule Take 1 (one) capsule by mouth once daily Active gabapentin (Neurontin) 300 MG capsule Take 1 (one) capsule by mouth 2 times daily Active QUEtiapine (SEROquel) 50 MG tablet Take 1 (one) tablet by mouth at bedtime 3 Active Active Problems Problem Noted Date Diagnosed Date Altered mental state 06/01/2011 Overview (06/02/2011): 16 yo female with significant past h/o mental illness admitted with 3rd event in the last week of altered mental status and 2nd event with convulsions, although all presentations have been different and this time only left-sided, accompanied by dysconjugate gaze and eye fluttering. On previous admission of 05-26-11 CT head was normal, cbc, cmp,uds, uhcg, t4/ tsh were all normal ,orthostatic BPs normal, lithium level normal. DDx: Pseudoseizures vs medication reaction vs anxiety and panic attack vs seizures Hospital course 1. Continuous cardiorespiratory monitoring 2. Consulted neurology - they performed a 24 hour video EEG which was completed today, during which pt did have an episode of falling, but EEG showed no epileptic activity - seizures have been r/o and pt most likely has pseudoseizures possibly from anxiety - pt will follow up closely w/ her psychiatrist, Dr. Tan. Collapse with head injury 05/27/2011 Overview (05/28/2011): 2 episodes of confusion/decreased responsiveness and one incident of falling and hitting head; mother witnessed pt shaking in all limbs DDx: Pseudoseizures vs seizures vs orthostatic hypotension vs syncope vs lithium toxicity Pt did not have any further episodes of confusion, syncope, or shakes during admission. Pt's vitals remained stable, although mother reports seeing HR go up to 150s at one point. Pt continues to have neck pain. Plan: 1. CT head - normal 2. c-collar was dc before discharge 3. Orthostatic BPs in AM - were negative 4. [place] level in AM - was normal 5. Continuous cardiorespiratory monitoring 6. Consult Psych - thought patient may have conversion disorder 7. Consult neuro - does not think its epilepsy and does not think any further neurological testing/evaluation is necessary 8.Urine tox - normal 9. Ibuprofen and Tylenol PRN for pain control; will have pt schedule PT as outpt for neck pain 10. Will have pt schedule EEG as outpt Conversion disorder 05/27/2011 Somnolence 03/01/2011 Overview (03/02/2011): Assessment: Yeni has appeared sedated since admission. Though this was thought to have resulted from poor sleep secondary to dental/face pain, it now appears suspicious that this is the result of her current psychiatric meds. When Yeni was visited in the afternoon she was very awake and alert and talkative. When speaking with her and her family, she almost always gets all of her medications. She is home-schooled and does not have a specific wake up time so the mornings she is always more sleepy. No changes need to be made in her medications at this time from a mental status standpoint. Dental infection with cellulitis 02/27/2011 Overview (03/02/2011): Yeni is a 15 year old female with a history of ADHD, bi-polar disorder, PCOS, and hypothyroidism who presented for failed outpatient treatment for a sinusitis incidentally found on MRI. She started to have jaw and face pain prior to admission and was started on augmentin. She later developed a fever the day prior to admission and got a dose of rocephin. She was admitted for treatment with IV clindamycin. On presentation she had symptoms more consistent with a dental etiology of her pain and left facial swelling. A panorex was taken and dentistry consulted. She had a history of a root canal infection in 2005 and stated that this felt much the same. Dentistry took her to the OR on the evening prior to discharge to remove her left front incisor and the tooth next to it on the upper mandible. She did well with surgery and her pain improved overnight. She was eating and drinking well the morning after surgery and was able to be discharged home to complete 10 full days of clindamycin orally. Plan: Follow-up with regular dentist in 1-2 weeks. Follow-up with Dr. Miller in 1-2 weeks. PCOS (polycystic ovarian syndrome) 02/27/2011 Overview (02/27/2011): Was taken to PMD 2 months ago for secondary amenorrhea and found to have elevated prolactin levels. And diagnosed with PCOS. Is Followed up at [facility]. Plan: September cont. Metformin, & orthocylen Hypothyroidism 02/27/2011 Overview (02/27/2011): Hypothyroidism for 1 yr. Followed at [facility];. Plan: cont levothyroxine Bipolar disease, chronic 02/27/2011 Attention deficit hyperactivity disorder (ADHD) 02/27/2011 Immunizations Immunization Administration Dates Next Due INFLUENZA VACCINE 05/28/2011 Family History Medical History Relation Name Comments Diabetes Maternal Grandfather Diabetes Maternal Grandmother Asthma Mother Relation Name Status Comments Maternal Grandfather Maternal Grandmother Mother Social History Tobacco Use Types Packs/Day Years Used Date Smoking Tobacco: Every Day Cigarettes Smokeless Tobacco: Never Tobacco Cessation:Ready to Q uit: Not Asked; Counseling Given: Not Answered Alcohol Use Standard Drinks/Week Comments No 0 (1 standard drink = 0.6 oz pur e alcohol) Comments No Sex and Gender Information Value Date Recorded Sex Assigned at Not on file Legal Sex Female 6:06 AM MORTICIAN INVESTIGATOR Gender Identity Not on file Sexual Orientation Not on file Last Filed Vital Signs Vital Sign Reading Time Taken Comments Blood Pressure 140/104 12/08/2023 10:42 AM CDT Pulse 98 12/08/2023 10:42 AM CDT Temperature 36.6 C (97.8 F) 12/08/2023 10:42 AM CDT Respiratory Rate 18 12/08/2023 10:42 AM CDT Oxygen Saturation 99% 12/28/2012 3:35 AM CDT Inhaled Oxygen Concentration - - Weight 110.7 kg (244 lb) 12/08/2023 10:42 AM CDT Height 160 cm (5' 3) 12/08/2023 10:42 AM CDT Body Mass Index 43.22 12/08/2023 10:42 AM CDT Plan of Treatment Health Maintenance Due Date Last Done Comments MEDICARE AWV 12 MONTHS 1995 HIV SCREENING 2010 HEPATITIS C SCREENING 04/29/2013 DTAP/TDAP/TD VACCINES (1 - Tdap) 2014 HEPATITIS B VACCINE (1 of 3 - 19+ 3-dose series) 2014 PNEUMOCOCCAL VACCINE (1 of 2 - PCV) 2014 HPV VACCINE (1 - 3-dose SCDM series) 2022 COVID-19 VACCINE (2 - season) 2025 09/07/2020 INFLUENZA VACCINE (#1) 2025 , 05/22/2019, 02/22/2018, Additional history exists PAP SMEAR 10/19/2026 10/20/2023 ZOSTER VACCINE (1 of 2) 2045 HIB VACCINE Aged Out No longer eligi ble based on patient's age to complete this topic MENINGOCOCCAL (Group B) VACCINE SHARED DECISION-MAKING Aged Out No longer eligible based on patient's age to complete this topic MENINGOCOCCAL GROUPS A/C/Y/W VACCINE Aged Out No longer eligible based on patient's age to complete this topic Insurance [place] [place] [address] [facility] Address: [address] [place] [address] [place] Care Teams Indirect Sales Representative Relationship Specialty Start Date End Date Aurelia Puri APRN-EVETTE [address] [place] [phone] PCP - General Nurse Practitioner Family 12/08/23
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
--- OUTSIDE RECORDS SUMMARY | 2025-04-08 08:08 | XMS_ITS | Encounter Summary ---
Author Organization [facility] Address [address] [place] [address] Phone Care Team Providers Care Toy Painter Name Role Phone LibradoRaineelle PAC Primary Care Pro vider Encounter Details Date Type Department Care Team (Late st Contact Info) Description 04/26/2024 Behavioral Health Patient Survey [facility] [address] [place] [address] Queenie Roca, ECCLESIASTICAL WORKER [address] [place] [address] Social History Tobacco Use Types Packs/Day Years [...] (Latest Contact Info) Description 04/08/2025 2:30 PM REDRAWER Occupational Therapy [facility] [address], [address] [place] [phone] Terrance Matta MD [address] [place] [address] Chiqui Carballo, OT [place] Discharge Disposition: Discharged to home or Selfcare 04/09/2025 3:30 PM REDRAWER Outpatient [facility] [address] [place] [phone] Kranthi Smith, ECCLESIASTICAL WORKER [address] [place] [address] Discharge Disposition: Discharged to home or Selfcare 04/16/2025 3:30 PM REDRAWER Out[facility] [address] [place] [phone] Kranthi Smith, ECCLESIASTICAL WORKER [address] [place] [address] Discharge Disposition: Discharged to home or Selfcare 04/23/2025 3:30 PM REDRAWER Outpatient Clinic Visit [facility] [address] [place] [phone] Kranthi Smith, ECCLESIASTICAL WORKER [address] [place] [address] Discharge Disposition: Discharged to home or Selfcare 04/25/2025 1:15 PM REDRAWER Outpatient [facility] [address] [place] [phone] Queenie Roca, ECCLESIASTICAL WORKER [address] [place] [address] Discharge Disposition: Discharged to home or Selfcare 04/30/2025 3:30 PM REDRAWER Outpatient [facility] [address] [place] [address] Kranthi Smith, ECCLESIASTICAL WORKER [address] [place] [address] Discharge Disposition: Discharged to home or Selfcare 05/12/2025 11:00 AM REDRAWER Outpatient Clinic Visit [facility] [address] [place] [address] Queenie Roca LCSW [address] [place] [address] Discharge Disposition: Discharged to home or Selfcare documented as of this encounter Goals Goal Patient Goal Type Associated Problems Recent Progress Patient-Stated? Author Behavioral Health Behavioral Health On track(2024 10:22 AM REDRAWER) Yes Queenie Roca LCSW Note: GOAL: Medication adhereance Goal Reviewed with: patient today Readiness to change: Ready to change Department associated with goal: [facility] Steps to achieve goal: Will take medication as prescribed Will take medication consistently without stopping Ayse will develop ways to make medication a daily routine such as setting an alarm on her phone. Behavioral Health Behavioral Health On track(2024 10:22 AM REDRAWER) No Queenie Roca LCSW Note: GOAL: Ayse will manage symptoms of bipolar disorder Goal Reviewed with: patient today Readiness to change: Ready to change Department associated with goal: [facility] Steps to achieve goal: Ayse will learn to recognize symptoms of zelalem Ayse will learn at least 3 strategies to manage high energy and manic behaviors Ayse will learn at least 3 strategies to use to improve symptoms of depression When I feel anger I need to learn how to control it. Behavioral Health Improving( 10:22 AM REDRAWER) Yes Queenie Roca LCSW Note: Goal/Objective: Increase coping skills for anger. Anticipated Time Frame for Goal Completion: 6 months Goal Reviewed with: patient Readiness to change: Ready to change Department associated with goal: [facility] Steps to achieve [...] documented as of this encounter Care Teams Toy Painter Relationship Specialty Start Date End Date Raine Pavon PAC PCP - General Physician Insurance Administrator 02/02/24 documented as of this encounter
--- OUTSIDE RECORDS SUMMARY | 2025-04-08 08:08 | XMS_ITS | Clinical Summary ---
Author Organization [facility] Address [address] [place] [address] Care Team Providers Care Honeycomb Blanket Maker Name Role Phone Pop Puri MD Primary Care Provider [phone] Allergies Active Allergy Reactions Criticality Noted Date Comments Buspirone Gluten Stomach upset Low Reaction: Stomach pains, Propranolol Medications gabapentin (NEURONTIN) 300 mg capsule Take 1 capsule (300 mg total) by mouth 2 (two) times a day Active QUEtiapine (SEROquel) 50 mg tablet Take 1 tablet (50 mg total) by mouth nightly 08/16/19 23 Active cariprazine (Vraylar) 4.5 mg capsule Take 4.5 mg by mouth daily Active albuterol HFA (ProAir HFA) 90 mcg/actuation inhalerIndication s:Mild intermittent asthma without complication Inhale 2 puff by inhalation route every 4-6 hours as needed 1 each 2 12/13/19 23 Active albuterol 2.5 mg /3 mL (0.083 %) nebulizer solutionIndicatio ns:Bronchospastic Pulmonary Disease Take 3 mL (2.5 mg total) by nebulization every 6 (six) hours as needed for wheezing 75 mL 12/13/19 23 Active levothyroxine (SYNTHROID) 50 mcg tabletIndications :Hypothyroidism, unspecified type TAKE 1 TABLET BY MOUTH NEUROLOGY PHYSICIAN ASSISTANT BEFORE BREAKFAST 90 tablet 1 12/13/19 23 Active hydrOXYzine (ATARAX) 25 mg tabletIndications :Mood disorder Take 1 tablet (25 mg total) by mouth 2 (two) times a day as needed for itching 90 tablet 4 12/13/19 23 Active traMADoL (ULTRAM) 50 mg tablet Take 1 tablet (50 mg total) by mouth every 8 (eight) hours as needed for pain 08/26/19 24 Active etonogestreL (NEXPLANON) 68 mg implantIndication s: Contraception 1 device subdermal 10/20/19 24 Active Active Problems Problem Noted Date Diagnosed Date Closed fracture of proximal phalanx of toe of ri ght foot 10/31/2023 Assessment & Plan (10/31/2023 12:53 PM CDT): Neurovascularly intact. Recommend following up with tooling specialist as directed to ensure proper care and healing. Encouraged to stay off of the foot and make sure to use the crutches. She is agreeable and states understanding. Hospital discharge follow-up 10/31/2023 Assessment & Plan (10/31/2023 12:52 PM CDT): Yeni Buck SENIOR SQL SERVER DATABASE DEVELOPER have personally reviewed pertinent inpatient and/or ED records, including discharge medications and Clindesk if applicable. This patient's discharge medication list has been reviewed and reconciled with her outpatient medication list and has also been reviewed with patient and/or caregiver. I have noted any changes. Acute bacterial conjunctivitis of left eye 08/29 Assessment & Plan (08/30/2023 11:02 AM CDT): Polymyxin B sent. Two drops to affected eye four times daily for 10 days. Discussed strict hand hygiene. Not to use hand towel/wasthrag/tissues on both eyes. Discussed how highly contagious it is. Aware to not touch dropper to eye/lashes; will contaminate tip of dropper. Reviewed red flags; what would warrant further evaluation. Abdominal pain 06/29/2023 Class 3 severe obesity due t o excess calories with serious comorbidity and body mass index (BMI) of 40.0 to 44.9 in adult 05/17/2023 Assessment & Plan (05/17/2023 10:34 AM DIRECTOR IT): Weight loss would be beneficial for overall health. Impacted cerumen of left ear 05/17/2023 Assessment & Plan (05/17/2023 1:42 PM DIRECTOR IT): Canals cleared. TM slightly erythematous. Will initiate round of antibiotics. RTC for any recurrent concerns. Mood disorder 12/12/2022 Assessment & Plan (08/30/2023 11:01 AM CDT): Stable on current regimen. Continue following with Psychiatry. Red flags reviewed. Assessment & Plan (12/12/2022 1:02 PM CDT): Managed by Psychiatry. Patient is taking lithium, Vraylar, and Seroquel. She requests refill of hydroxyzine, current prescription is . Hydroxyzine 25 mg p.r.n. E scribed, reviewed medication side effects scheduling. Contusion of hand, right 11/11/2022 Closed displaced fracture of anterior process of right calcaneus 11/11/2022 Assessment & Plan (05/17/2023 10:34 AM DIRECTOR IT): Pain resolved. Neurovascularly intact. Complete six-month course of Xarelto and then can stop. Assessment & Plan (12/12/2022 12:58 PM CDT): Managed by ortho, cast in place. Good sensation and warmth of toes. Scheduled for follow up next week. Urticaria 08/02/2022 Left cervical lymphadenopathy 08/02/2022 Assessment & Plan (05/17/2023 10:37 AM DIRECTOR IT): Mild X 2-3 days. Recommend monitoring. Cerumen impaction cleared. If not resolving consider return to ENT. She is agreeable with plan and states understanding. Muscle strain of right upper arm 07/04/2022 Panic attack 07/04/2022 Abdominal pain, left lower quadrant 12/01/2021 Abscess of skin or subcutaneous tissue Acute pain of left foot 12/01/2021 Contusion of right wrist 12/01/2021 Dizziness 12/01/2021 Bipolar disorder, in partial remission, most recent episode mixed 11/10/2021 Assessment & Plan (10/31/2023 12:53 PM CDT): Reports stable currently. Continue following with Psychiatry as directed. Red flags reviewed. Class 2 obesity due to exces s calories without serious comorbidity with body mass index (BMI) of 37.0 to 37.9 in adult 01/22/2021 Assessment & Plan (12/12/2022 1:00 PM CDT): Discussed healthy diet and importance of regular physical activity. Assessment & Plan (01/22/2021 11:21 AM CDT): Reviewed need to lose weight, reviewed health benefits. Reviewed recommendations for daily intake & activity 20-30 minutes/day. Discussed healthy diet and importance of regular physical activity. Menses, irregular 01/22/2021 Assessment & Plan (01/22/2021 11:36 AM CDT): LMP x2 11/2020. Missed 12/2020. Has had unprotected intercourse. Would like test. Could not order serum HCG d/t ABN was triggered; would allow urine HCG. Aware to check mychart for results. Severe asthma with acute exacerbation 01/22/2021 Assessment & Plan (01/22/2021 11:38 AM CDT): Much improvement after [facility] Has completed her abx & steroids. Not using nebs. Has returned to smoking--stressed need to stop. Reviewed red flags; what would warrant return to ED. Severe persistent asthma with exacerbation 01/03 Cyst of left ovary 11/20/2020 Encounter for screening for lipid disorder 09/17 Assessment & Plan (09/17/2020 2:39 PM CDT): Lipid panel ordered; will call w/results when received. Reviewed diet/exercise recommendations. Unilateral headache 09/10/2020 Assessment & Plan (09/17/2020 2:39 PM CDT): Discussed break from screen time. Take otc pain relievers as needed. Ensure adequate hydration. Discussed brain rest s/p concussions. Reviewed red flags. History of migraine headaches 09/10/2020 History of closed head injury 09/10/2020 Nausea and vomiting 09/10/2020 Morbid obesity with BMI of 40.0-44.9, adult 06/15 Tobacco dependence due to cigarettes 11/10/2018 Assessment & Plan (01/22/2021 11:31 AM CDT): Has gone back to smoking 1 PPD. Precontemplative. Encouraged complete smoking cessation. Discussed different types of medications & mupa-sud-sdblomj aides to help with cessation. Assessment & Plan (09/17/2020 2:36 PM CDT): Precontemplative. Encouraged complete smoking cessation. Discussed different types of medications & upiq-npb-psxguke aides to help with cessation. Assessment & Plan (11/10/2018 9:01 AM CDT): Precontemplative. Encouraged complete smoking cessation. Discussed different types of medications & ssgw-acv-olqcnso aides to help with cessation. Anxiety 11/06/2018 Assessment & Plan (11/06/2018 11:02 AM CDT): Hydroxyzine sent. Will call Dr Savage's office re: suptherapeutic lithium level. Results faxed to their office at time of appt. Hypothyroidism 11/06/2018 Assessment & Plan (11/10/2018 9:00 AM CDT): TSH/T4 ordered; will call w/results when rec'd. Reviewed med Ses & scheduling. Reviewed sxs hypo/hyperthyroidism. No changes at this time. Aware to take 1st think in morning. Nothing to eat/drink x30 min after taking levothyroxine. Candidal intertrigo 11/06/2018 Assessment & Plan (09/17/2020 2:37 PM CDT): Wash with soap & water 2-3x/day. Pat dry. apply otc antifungal such as lotrimin. To keep fingernails short to lessen risk of secondary infection from scratching. Can apply paper towel or wash rag in between folds to keep skin & allow for air flow. May use cool setting on division chair to help dry. Reviewed signs of secondary infection. Assessment & Plan (11/10/2018 9:01 AM CDT): Wash with soap & water 2-3x/day. Pat dry. Apply apply otc antifungal such as lotrimin. To keep fingernails short to lessen risk of secondary infection from scratching. Can apply paper towel or wash rag in between folds to keep skin & allow for air flow. May use cool setting on division chair to help dry. Reviewed signs of secondary infection. Migraine headache 06/14/2016 Psychophysiological insomnia 06/14/2016 Gastroesophageal reflux disease 01/13/2016 Overview (08/19/2016): GERD Mild intermittent asthma 01/13/2016 Overview (08/20/2016): Mild intermittent asthma Bipolar 1 disorder, mixed, moderate (CMS/HCC) Essential hypertension 10/22/2015 Assessment & Plan (10/31/2023 12:53 PM CDT): Stable. Reviewed lifestyle recommendations. Encouraged smoking cessation. Will continue to monitor. Assessment & Plan (08/30/2023 11:01 AM CDT): Controlled with lifestyle modifications. Will continue to monitor. Altered mental state 06/01/2011 Overview (12/01/2021): 16 yo female with significant past h/o [...] up closely w/ her psychiatrist, Dr. Tan. Head injury 05/27/2011 Overview (12/01/2021): Overview: 2 episodes of confusion/decreased responsiveness and one [...] BPs in AM - were negative 4. [place] level in AM - was normal 5. [...] Will have pt schedule EEG as outpt 2 episodes of confusion/decreased responsiveness and one [...] BPs in AM - were negative 4. [place] level in AM - was normal 5. [...] Will have pt schedule EEG as outpt Somnolence 03/01/2011 Overview (12/01/2021): Assessment: Edmundo has appeared sedated since admission. Though this was thought to have resulted from poor sleep secondary to dental/face pain, it now appears suspicious that this is the result of her current psychiatric meds. When Edmundo was visited in the afternoon she was [...] from a mental status standpoint. Dental infection 02/27/2011 Overview (12/01/2021): Edmundo is a 15 year old female with [...] Follow-up with Dr. Miller in 1-2 weeks. Celiac disease 05/15/2009 Overview (08/19/2016): Celiac disease Hypothyroidism 05/15/2007 Overview (12/01/2021): Hypothyroidism, unspecified type Overview: Hypothyroidism for 1 yr. Followed at [facility];. Plan: cont levothyroxine Hypothyroidism for 1 yr. Followed at [facility];. Plan: cont levothyroxine Assessment & Plan (05/17/2023 10:34 AM DIRECTOR IT): Clinically euthyroid. Will check TSH and plan accordingly. Assessment & Plan (12/12/2022 1:00 PM CDT): Levothyroxine 50 mcg daily. Will check TSH/T4 and make changes as needed. Lab Results Component Value Date TSH 3.65 02/16/2021 TSH 3.26 10/01/2020 TSH 1.71 07/01/2020 PCOS (polycystic ovarian syndrome) 05/15/2007 Overview (12/01/2021): PCOS (polycystic ovarian syndrome) Overview: Was taken to PMD 2 months ago for secondary amenorrhea and found to have elevated prolactin levels. And diagnosed with PCOS. Is Followed up at [facility]. Plan: September cont. Metformin, & orthocylen Was taken to PMD 2 months ago for secondary amenorrhea and found to have elevated prolactin levels. And diagnosed with PCOS. Is Followed up at [facility]. Plan: September cont. Metformin, & orthocylen Bipolar disease, chronic 05/15/2001 Overview (03/23/2018): Bipolar affective disorder Assessment & Plan (11/06/2018 11:03 AM CDT): Psychological condition is worsening. Regular aerobic exercise. Medication changes per orders. Psychological condition will be reassessed at the next regular appointment. Hydroxyzine sent. Will call Dr Savage's office re: suptherapeutic lithium level. Results faxed to their office at time of appt. Pneumonia Assessment & Plan (01/22/2021 11:39 AM CDT): Much improvement after recent [facility]. Has completed her abx & steroids. Not using nebs. Has returned to smoking--stressed need to stop. Reviewed red flags; what would warrant return to ED. Resolved Problems Problem Noted Date Diagnosed Date Resolved Date Class 3 severe obesity due t o excess calories without serious comorbidity with body mass index (BMI) of 40.0 to 44.9 in adult 09/17/202002/2021 Assessment & Plan (09/17/2020 2:37 PM CDT): Reviewed need to lose weight, reviewed health benefits. Reviewed recommendations for daily intake & activity 20-30 minutes/day. Discussed healthy diet and importance of regular physical activity. Foot sprain, left, initial encounter 10/30/2019 09/17/2020 Sprain of anterior talofibul ar ligament of left ankle 10/30/2019 09/17/2020 BMI 34.0-34.9,adult 11/06/2018 09/18/19 21 Assessment & Plan (11/10/2018 9:01 AM CDT): Reviewed need to lose weight, reviewed health benefits. Reviewed recommendations for daily intake & activity 20-30 minutes/day. Discussed healthy diet and importance of regular physical activity. Smoker 03/25/2018 01/22/2021 Tobacco use 05/10/2016 09/17/2020 Overview (08/20/2016): Tobacco use Conversion disorder 05/27/2011 09/18/19 21 Encounters Date Type Department Care Team Description 03/16/2025 12:06 PM DIRECTOR IT - 03/16/2025 11:59 PM DIRECTOR IT Hospital Encounter [facility] Emergency, Room R Discharge Disposition: Discharge to home or self care from Last 3 Months Immunizations Immunization Administration Dates Next Due HPV9 05/27/2020,10/15/2018 Influenza, Quadrivalent, Spl it, Preservative Free, Intramuscular 03/24/2020,05/22/2019,02/22/2018,05/10 Influenza, Unspecified 07/21/2023(Deferr ed: Patient Refused),02/27/2023(Deferred: Patient Refused),01/13/2023(Deferred: Patient Refused),10/03/2022(Deferred: Patient Refused),02/12/2022(Deferred: Patient Refused),01/13/2022(Deferred: Patient Refused),01/13/2022(Deferred: Patient Refused),02/12/2021(Deferred: Patient Refused),05/17/2020(Deferred: Patient Refused),02/20/2018,05/15/2017(Deferre d: Patient Refused),05/28/2011 Moderna SARS-CoV-2 Monovalen t Vaccination (12+ YRS) 09/07/2020 Surgical History Surgery Date Site/Laterality Comments TONSILLECTOMY Tonsillectomy TONSILLECTOMY 05/15/2004 - 05/14/2005 Tonsillectomy DENTAL SURGERY Medical History Medical History Date Comments Disorder of thyroid 2007 Thyroid dise ase Hx Other Medical 2009 Celiac disease Hx Other Medical 2007 PCOS Hx Other Medical 2001 Bipolar disease ; Comments: ALEXIS 05/10/2016 - Asthma ADHD (attention deficit hyperactivity disorder) Anxiety early teens Brain concussion I have had quite a few Depression goes along with bipo lar diagnosis at age [age] Menstrual problem PCOS since early teens DVT (deep venous thrombosis) 12/2022 Nausea and vomiting 09/10/2020 Essential hypertension 10/22/2015 Family History Medical History Relation Name Comments Epilepsy Father Epilepsy; COPD Maternal Grandmother Shayla Cancer Maternal Grandmother Shayla Uterine v cervical (?) Anemia Mother August Epilepsy Mother August epilepsy; Other Mother August Alive and well; Heart attack Other 1 Family history of Myocardial infarction; Hypertension Other 2 Family history of Hypertension; Stroke Other 3 Family history of Stroke; Diabetes Paternal Grandmother Inés Diabete s mellitus; Other Sister 2 Alive and well; Relation Name Status Comments Father Alive Maternal Grandmother Shayla Mother August Alive Other 1 Other 2 Other 3 Paternal Grandmother Inés Sister 1 Alive Sister 2 Social History Tobacco Use Types Packs/Day Years Used Date Smoking Tobacco: Every Day Cigarettes 1 11 Smokeless Tobacco: Never Tobacco Cessation:Ready to Q uit: Not Asked; Counseling Given: Not Answered Comments:ready to quit but dont know how or if i could even keep up with it after i quit Alcohol Use Standard Drinks/Week Comments Yes 0 (1 standard drink = 0.6 oz pur e alcohol) socially Humiliation, Afraid, Rape, and Kick questionnair e Answer Date Recorded Within the last year, have y ou been afraid of your partner or ex-partner? No 08/31/2022 Within the last year, have y ou been humiliated or emotionally abused in other ways by your partner or ex-partner? No Within the last year, have y ou been kicked, hit, slapped, or otherwise physically hurt by your partner or ex-partner? No 08/31/2022 Within the last year, have y ou been raped or forced to have any kind of sexual activity by your partner or ex-partner? No 08/31/2022 Social Connection and Isolation Panel Answer Date Recorded In a typical week, how many times do you talk on the phone with family, friends, or neighbors? More than three times a week 08/31/2022 How often do you get togethe r with friends or relatives? More than three times a week 08/31/2022 How often do you attend [facility] or pentecostal services? Never 08/31/2022 Do you belong to any clubs o r organizations such as cheondoism groups, unions, fraternal or athletic groups, or school groups? No 08/31/2022 How often do you attend meet ings of the clubs or organizations you belong to? Never 08/31/2022 Are you , , di vorced, , never , or living with a partner? Never 08/31/2022 AUDIT-C Answer Date Recorded Q1: How often do you have a drink containing alc ohol? Monthly or less 05/17/2023 Q2: How many drinks containi ng alcohol do you have on a typical day when you are drinking? 1 or 2 05/17/2023 Q3: How often do you have si x or more drinks on one occasion? Never 05/17/2023 Overall Financial Resource Strain (CARDIA) Answe r Date Recorded How hard is it for you to pa y for the very basics like food, housing, medical care, and heating? Not very hard 08/31/2022 PHQ-2 Answer Date Recorded PHQ-2 Total Score (If total score is 3 or more points, staff should administer the PHQ-9) 0 07/21/2023 [facility] - Occupational Stress Questionnaire Answer Date Recorded Do you feel stress - tense, restless, nervous, or anxious, or unable to sleep at night because your mind is troubled all the time - these days? To some extent 08/31/2022 Exercise Vital Sign Answer Date Recorde d On average, how many days pe r week do you engage in moderate to strenuous exercise (like a brisk walk)? 7 days 08/31/2022 On average, how many minutes do you engage in exercise at this level? 30 min 08/31/2022 Hunger Vital Sign Answer Date Recorded Within the past 12 months, y ou worried that your food would run out before you got the money to buy more. Never true 09/01/19 23 Within the past 12 months, t he food you bought just didn't last and you didn't have money to get more. Never true 08/31/2022 PRAPARE - Transportation Answer Date Re corded In the past 12 months, has l ack of transportation kept you from medical appointments or from getting medications? No 08/13 In the past 12 months, has l ack of transportation kept you from meetings, work, or from getting things needed for daily living? No 08/31/2022 Housing Stability Vital Sign Answer Clive e Recorded In the last 12 months, was t here a time when you were not able to pay the mortgage or rent on time? No 08/31/2022 In the last 12 months, how many places have you lived? 1 08/31/2022 In the last 12 months, was t here a time when you did not have a steady place to sleep or slept in a penitentiary (including now)? No 08/31/2022 Personal Safety Answer Date Recorded Have you ever been in or are you currently in a harmful physical or emotional relationship or is someone making you feel afraid or unsafe? Denies 02/24/2024 Comments No Sex and Gender Information Value Date Recorded Sex Assigned at Not on file Legal Sex Female 6:28 PM DIRECTOR IT Gender Identity Not on file Sexual Orientation Not on file Obstetrics History Para Term AB IAB SAB Ectopic Multiple Livin g Live Births 0 0 0 0 0 0 0 0 0 0 0 Last Filed Vital Signs Vital Sign Reading Time Taken Comments Blood Pressure 124/74 02/24/2024 8:05 PM CDT Pulse 146 02/24/2024 8:05 PM CDT Temperature 36.2 C (97.2 F) 10/31/2023 11:27 AM CDT Respiratory Rate 16 02/24/2024 8:04 PM CDT Oxygen Saturation 99% 02/24/2024 8:04 PM CDT Inhaled Oxygen Concentration - - Weight 108.9 kg (240 lb) 02/24/2024 8:04 PM CDT Height 158.8 cm (5' 2.52) 10/31/2023 11:27 AM C DT Body Mass Index 43.17 10/31/2023 11:27 AM CDT Plan of Treatment Health Maintenance Due Date Last Done Comments Hepatitis C Screening 1995 Hepatitis B Screening 2013 Pneumococcal vaccine <65 (1 of 2 - PCV) 2014 HPV Vaccines (3 - 3-dose series) 08/19/2020 05/27/19, 10/15/2018 Regular Well Visit/Exam 18-64 01/06/2021, 10/15/2018, 06/12/2017 Depression Screening 07/20/2024 07/21/2023, 02/27/2023, 01/02/2023, Additional history exists Cervical Cancer Screening 10/19/2024 10/20/2023, 03/2022 Covid-19 Vaccine (2 - 2024-2 6 season) 2025 09/07/2020 Influenza Vaccine (#1) 2025 , 05/22/2019, 02/22/2018, Additional history exists DTaP/Tdap/Td Vaccine (2 - Td or Tdap) 04/17/2034 04/17/2024 Varicella Vaccines Discontinued Goals Goal Patient Goal Type Associated Problems [...] take, when to call CM or provider. Procedures Procedure Name Priority Date/Time Associated Diagnosis Comments PAP WITH REFLEX TO HIGH RISK HPV Routine 10/20/2023 8:18 AM CDT Screening for malignant neoplasm of the cervix from Last 3 Months or Most Recently Relevant to Health Maintenance Results * Pap with reflex to High Risk HPV and Genotyping (Cytology Component) (10/20/2023 8:18 AM CDT) Thin prep (Pap test) 10/20/2023 8:18 AM CDT 10/20/2023 8:18 AM CDT Narrative PATHOLOGY CH - 10/25/2023 11:46 AM CDT [facility] Department of Pathology [address] [place] [address] Final Report Note to Patients: This report may contain a detailed description of human tissue sent by a health care provider to the laboratory for pathologic evaluation. The content of this report is essential for diagnosis and may provide important critical findings. This information may be unfamiliar to patients to review without a medical professional present. It is advised that the patient review this report in the presence of a health care provider who can answer questions and explain the details. Patient Name: EDMUNDO WILLIAMSON Address: [address] [place] [address] Gender: F : 1995 (Age: 28) Service: Location: N : [id number] [facility] #: [id number] Patient Type: [facility] Taken: 10/20/2023 Received: 10/20/2023 Accessioned:: 10/23/2023 Reported: 10/25/2023 Physician(s): MD Valarie Gamez MD Diagnosis: SOURCE OF SPECIMEN Imaged Thinprep Pap Test w/ Reflex HPV - [employer] Cytologic Material: STATEMENT OF ADEQUACY - Satisfactory for evaluation; endocervical/transformation zone component present GENERAL CATEGORIZATION: - Negative for intraepithelial lesion or malignancy INTERPRETATION: - Predominance of coccobacilli consistent with shift in vaginal rosibel. Possible bacterial vaginosis CASEY Rangel(ASCP) Report Electronically Reviewed and Signed Out By CASEY Rangel(ASCP) 10/25/2023 11:46:53Specimen(s) Received: A: Imaged Thinprep Pap Test w/ Reflex HPV - [employer] Cytologic Material Clinical History: Menstrual History: Previous Negative Pap Contraceptive History: control implant: Nexplanon The Pap test is a screening test used to aid in the detection of cervical cancer and its precursors. It should not be the sole means by which malignant and premalignant lesions are diagnosed. Both false negative and false positive results may occur. It also has poor sensitivity for the detection of endometrial lesions and should not be used to evaluate suspected endometrial abnormalities. For these reasons it is most important to obtain Pap tests at regular intervals. The performance characteristics of some immunohistochemical stains, fluorescence in-situ hybridization tests and immunophenotyping by flow cytometry cited in this report (if any) were determined by the Surgical Pathology Department at [facility] as part of an ongoing quality rep program and in compliance with federally mandated regulations drawn from the Clinical Laboratory Improvement Act of 1988 (CLIA '88). Some of these tests rely on the use of analyte specific reagents and are subject to specific labeling requirements by the [place] Food and Drug Administration. Such diagnostic tests may only be performed in a facility that is certified by the Department of Health and Human Services as a high complexity laboratory under CLIA '88. The FDA has determined that such clearance or approval is not necessary. This test is used for clinical purposes. It should not be regarded as investigational or for research. Nevertheless, federal rules concerning the medical use of analyte specific reagents require that the following disclaimer be attached to the report: This test was developed and its performance characteristics determined by the Surgical Pathology Department [facility]. It has not been cleared or approved by the U. S. Food and Drug Administration. 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
[2025-04-08 08:10] VITALS: BP 139/95; PULSE 120; RESP 24; TEMP 36.6; O2SAT 100
[2025-04-08] MEDS: IBUPROFEN 400 MG TABLET 800 MG PO (08:41)
[2025-04-08 08:51] LABS: BEDSIDEPREGUCG Negative (Negative)
== END 2025-04-08 09:25 | disposition home or self-care (01) ==
PROVIDERS: Emergency Provider Nurse Practitioner Family; PCP Physician Assistant
DX: M54.2 Cervicalgia (principal); S60.222A Contusion of left hand, initial encounter; Y04.2XXA Assault by strike against or bumped into by another person, initial encounter; M25.532 Pain in left wrist; F17.210 Nicotine dependence, cigarettes, uncomplicated; F17.290 Nicotine dependence, other tobacco product, uncomplicated; E03.9 Hypothyroidism, unspecified; E28.2 Polycystic ovarian syndrome; K90.0 Celiac disease; J45.909 Unspecified asthma, uncomplicated; F31.9 Bipolar disorder, unspecified
CPT/HCPCS: 72040; 73110; 73130; 81025; 99214; A9270; G0463